=== PATIENT | female | born 1965 | race Caucasian/White ===

== ENCOUNTER 2017-09-13 14:25 | Inpatient (IN) | payer OTHER ==
[~2017-09-13] VITALS: Ht 160 cm; Wt 92.6 kg
[~2017-09-13 14:25] MED LIST: CLON0.5T3 PO; EST1 PO; GDN80 PO; LAMO100T16 PO; OXYB5TAB PO; TOPI100T20 PO; TOPI50TA16 PO
[2017-09-13] MEDS ORDERED: LAMO200T PO (15:24)
[2017-09-13] MEDS ORDERED: ABL/5 PO (15:24)
[2017-09-13] MEDS ORDERED: CHOL20009 PO (15:24)
[2017-09-13] MEDS ORDERED: BUPR-79 PO (15:24)
[2017-09-13 16:00] LABS: URINE APPEARANCE CLOUDY (CLEAR); URINE BILIRUBIN NEG (NEG); URINE COLOR YELLOW; URINE EPITHELIAL CELL AUTO >30 /lpf (0-5); URINE NITRITE NEG (NEG); URINE SPECIFIC GRAVITY 1.029 (1.000-1.030); UROBILINOGEN NEG (NEG); ZZUR CULT IF INDIC CLEAN CATCH NO
--- NOTE | 2017-09-13 16:01 | EMERGENCY ROOM VISIT NOTE ---
History Report prepared by Elmer: Tevin Iqbal Under the Supervision of: Dr. Vitaliy Jameson M.D. First contact with patient: 15:47 Chief Complaint: MENTAL HEALTH EVALUATION Stated Complaint: MENTAL HEALTH,VOICES,HALLUCINATIONS History of Present Illness The patient is a 52 year old female who presents to the Emergency Room for a mental health evaluation. She has a history of bipolar disorder, schizoaffective disorder, and auditory hallucinations. She takes Topamax and Lamictal for her symptoms. She does not take [place]. She was placed on Abilify a couple of weeks ago, but stopped taking it because she was confused as to what her PCP wanted. She has been having worsening auditory hallucinations for about 6 months. She describes them as "pleasant conversations." However, today the voices told her to harm her animals, which they have never done before. She notes that occasionally they will tell her to harm herself. She tried to commit suicide through a pill overdose 6 months ago, but she has not tried to harm herself since then. She denies taking any pills in excess today. Two years ago, she was evaluated in the ER and was transferred to the [facility] for further mental health care and management. The patient is waiting for insurance approval to start Latuda. Source of History: patient Onset: today Position: other (Mental Health) Symptom Intensity: moderate Quality: other (Auditory Hallucinations) Timing: worsening Note: She has a suicidal ideation. She denies any abnormal physical symptoms at this time. Review of Systems See HPI for pertinent positives & negatives. A total of 10 systems reviewed and were otherwise negative. Past Medical & Surgical Medical Problems: (1) Anxiety (2) Bipolar disorder (3) Depression (4) Mood disorder (5) Seizure Family History Omitted secondary to the patient's age. Social History Smoking Status: Never Smoker Smokeless Tobacco Use: No Drug Use: none Marital Status: Housing Status: lives with family Occupation Status: employed Current/Historical Medications Scheduled Aripiprazole (Abilify), 5 MG PO HS Bupropion (Wellbutrin Sr), 150 MG PO BID Cholecalciferol (Vitamin D), 2,000 UNITS PO DAILY Clonazepam (Klonopin), 0.5 MG PO BID Lamotrigine (Lamictal), 100 MG PO BID Lamotrigine (Lamictal), 200 MG PO BID Oxybutynin Chloride (Oxybutynin Chloride Er), 5 MG PO DAILY Topiramate (Topamax), 100 MG PO TID Topiramate (Topamax), 50 MG PO TID Scheduled PRN Clonazepam (Klonopin), 0.5 MG PO DAILY PRN for Anxiety Allergies Coded Allergies: Aspartame (Unverified Allergy, Unknown, seizure like episode, 09/13/17) Diphenhydramine (Unverified Allergy, Unknown, seizure like episode, ) Meperidine (Verified Allergy, Unknown, 09/13/17) Pseudoephedrine (Unverified Allergy, Unknown, seizure like episode, ) Epinephrine (Unverified Adverse Reaction, Unknown, seizure like emotions, 09/13/17) Lidocaine (Unverified Adverse Reaction, Unknown, seizure like emotions., 09/13/17) Physical Exam Vital Signs Date Time Temp Pulse Resp B/P (MAP) Pulse Ox O2 Delivery O2 Flow Rate FiO2 09/13/17 14:32 36.9 88 18 155/91 99 Room Air Physical Exam GENERAL: Patient is in no acute distress. HEENT: No acute trauma, normocephalic atraumatic, mucous membranes moist, no nasal congestion, no scleral icterus. NECK: No stridor, no adenopathy, no meningismus, trachea is midline. LUNGS: Clear to auscultation bilaterally, no wheeze, no rhonchi, breath sounds equal. HEART: Without murmurs gallops or rubs, regular rate and rhythm. ABDOMEN: Soft, nontender, bowel sounds positive, no hernias, no peritonitis. EXTREMITIES: No cyanosis or edema, full range of motion of all the joints without pain or difficulty, no signs for acute trauma. NEUROLOGIC: Oriented x 3, no acute motor or sensory deficits, no focal weakness. SKIN: No rash, no jaundice, no diaphoresis. PSYCHOLOGIC: Cooperative. Voluntary. Admits to hearing voices. Medical Decision & Procedures Laboratory Results 09/13/17 16:07 Red Blood Count 4.47, Mean Corpuscular Volume 91.7, Mean Corpuscular Hemoglobin 30.6, Mean Corpuscular Hemoglobin Concent 33.4, Mean Platelet Volume 8.8, Neutrophils (%) (Auto) 57.9, Lymphocytes (%) (Auto) 31.4, Monocytes (%) (Auto) 7.0, Eosinophils (%) (Auto) 2.9, Basophils (%) (Auto) 0.4, Neutrophils # (Auto) 4.16, Lymphocytes # (Auto) 2.26, Monocytes # (Auto) 0.50, Eosinophils # (Auto) 0.21, Basophils # (Auto) 0.03 09/13/17 16:07 Test 09/13/17 14:50 09/13/17 16:07 Urine Color YELLOW Urine Appearance CLOUDY (CLEAR) Urine pH 7.0 (4.5-7.5) Urine Specific [place] 1.029 (1.000-1.030) Urine Protein NEG (NEG) Urine Glucose (UA) NEG (NEG) Urine Ketones NEG (NEG) Urine Occult Blood NEG (NEG) Urine Nitrite NEG (NEG) Urine Bilirubin NEG (NEG) Urine Urobilinogen NEG (NEG) Urine Leukocyte Esterase SMALL (NEG) Urine WBC (Auto) 5-10 /hpf (0-5) Urine RBC (Auto) 0-4 /hpf (0-4) Urine Hyaline Casts (Auto) 1-5 /lpf (0-5) Urine Epithelial Cells (Auto) >30 /lpf (0-5) Urine Bacteria (Auto) NEG (NEG) Urine Opiates Screen NEG (NEG) Urine Methadone, Qualitative NEG (NEG) Urine Barbiturates NEG (NEG) Urine Phencyclidine (PCP) Level NEG (NEG) Ur Amphetamine/Methamphetamine NEG (NEG) MDMA (Ecstasy) Screen POS (NEG) Urine Benzodiazepines Screen NEG (NEG) Urine Cocaine Metabolite NEG (NEG) Urine Marijuana (THC) NEG (NEG) White Blood Count 7.19 K/uL (4.8-10.8) Red Blood Count 4.47 M/uL (4.2-5.4) Hemoglobin 13.7 g/dL (12.0-16.0) Hematocrit 41.0 % (37-47) Mean Corpuscular Volume 91.7 fL (80-100) Mean Corpuscular Hemoglobin 30.6 pg (25-34) Mean Corpuscular Hemoglobin Concent 33.4 g/dl (32-36) Platelet Count 260 K/uL (130-400) Mean Platelet Volume 8.8 fL (7.4-10.4) Neutrophils (%) (Auto) 57.9 % Lymphocytes (%) (Auto) 31.4 % Monocytes (%) (Auto) 7.0 % Eosinophils (%) (Auto) 2.9 % Basophils (%) (Auto) 0.4 % Neutrophils # (Auto) 4.16 K/uL (1.4-6.5) Lymphocytes # (Auto) 2.26 K/uL (1.2-3.4) Monocytes # (Auto) 0.50 K/uL (0.11-0.59) Eosinophils # (Auto) 0.21 K/uL (0-0.5) Basophils # (Auto) 0.03 K/uL (0-0.2) RDW Standard Deviation 45.9 fL (36.4-46.3) RDW Coefficient of Variation 13.7 % (11.5-14.5) Immature Granulocyte % (Auto) 0.4 % Immature Granulocyte # (Auto) 0.03 K/uL (0.00-0.02) Anion Gap 8.0 mmol/L (3-11) Est Creatinine Clear Calc Drug Dose 75.6 ml/min Estimated GFR () 81.3 Estimated GFR (Non- 70.2 BUN/Creatinine Ratio 17.6 (10-20) Calcium Level 8.4 mg/dl (8.5-10.1) Total Bilirubin 0.1 mg/dl (0.2-1) Aspartate Amino Transf (AST/SGOT) 14 U/L (15-37) Alanine Aminotransferase (ALT/SGPT) 20 U/L (12-78) Alkaline Phosphatase 125 U/L (45-117) Total Protein 7.3 gm/dl (6.4-8.2) Albumin 3.7 gm/dl (3.4-5.0) Globulin 3.6 gm/dl (2.5-4.0) Albumin/Globulin Ratio 1.0 (0.9-2) Thyroid Stimulating Hormone (TSH) 2.790 uIu/ml (0.300-4.500) Salicylates Level < 1.7 mg/dl (2.8-20) Acetaminophen Level < 2 ug/ml (10-30) Ethyl Alcohol mg/dL < 3.0 mg/dl (0-3) Laboratory results reviewed by me. ED Course 1547: The patient was evaluated in room A6. A complete history and physical exam was performed. 1830: The patient was accepted to [address] [place] [address] for further mental health treatment and management as an inpatient. Medical Decision Differential diagnosis includes but is not limited to psychosis, medication noncompliance, thyroid disorder, electrolyte imbalance, and infection. There is no leukocytosis or concerning anemia. No significant electrolyte abnormality, kidney failure or hepatitis. The patient appears to be in a euthyroid state. Urinalysis shows contamination, no obvious infection. Urine tox shows possible ecstasy. Aspirin, Tylenol and alcohol levels were undetectable. The patient presents with auditory hallucinations. The voices tell her to hurt herself and her animals. She was voluntary, she was cooperative. The patient was felt medically clear for a psychiatric evaluation. She was seen by the psychiatry staff, she is being admitted voluntarily to our hospital' s psychiatric floor. She has been cooperative during her stay. Medication Reconcilliation Current Medication List: was personally reviewed by me Blood Pressure Screening Patient's blood pressure: Elevated blood pressure Blood pressure disposition: Elevated BP felt to be situational Impression Primary Impression: Auditory hallucinations Scribe Attestation The scribe's documentation has been prepared under my direction and personally reviewed by me in its entirety. I confirm that the note above accurately reflects all work, treatment, procedures, and medical decision making performed by me. Departure Information Dispostion Mental Health Acute Care Referrals Melquiades Bond M.D. (PCP) Patient Instructions My [facility]
[2017-09-13 16:03] LABS: MANUAL MICROSCOPIC REQUIRED? NO; REVIEW REQ? NO
[2017-09-13 16:21] LABS: BENZODIAZEPINE, URINE NEG (NEG); COCAINE,URINE NEG (NEG); PHENCYCLIDINE, URINE NEG (NEG)
[2017-09-13 16:21] LABS: BASO % 0.4 %; BASO ABS # 0.03 K/uL (0-0.2); COMPLETE YES; EOS % 2.9 %; IG% 0.4 %; LYMPH % 31.4 %; LYMPH ABS # 2.26 K/uL (1.2-3.4); MEAN CELL VOLUME 91.7 fL (80-100); MEAN CORPUSCULAR HEMOGLOBIN 30.6 pg (25-34); MEAN CORPUSCULAR HGB CONC 33.4 g/dl (32-36); MEAN PLATELET VOLUME 8.8 fL (7.4-10.4); NEUT % 57.9 %; PLATELET COUNT 260 K/uL (130-400); RED BLOOD COUNT 4.47 M/uL (4.2-5.4); WHITE BLOOD COUNT 7.19 K/uL (4.8-10.8)
[2017-09-13 16:42] LABS: BUN/CREATININE RATIO 17.6 (10-20); CALCIUM 8.4 mg/dl (8.5-10.1); CREATININE 0.93 mg/dl (0.60-1.20); POTASSIUM 3.9 mmol/L (3.5-5.1)
[2017-09-13 16:50] LABS: ACETAMINOPHEN < 2 ug/ml (10-30)
[2017-09-13 16:52] LABS: THYROID STIMULATING HORMONE 2.79 uIu/ml (0.300-4.500)
[2017-09-13] MEDS ORDERED: BISMUTH SUBSALICYLATE PER ML OMNICELL CHARGE PO PRN (18:30)
[2017-09-13] MEDS ORDERED: CLONAZEPAM 0.5 MG TAB PO PRN (18:30)
[2017-09-13] MEDS ORDERED: ACETAMINOPHEN 325 MG TAB PO PRN (18:30)
[2017-09-13] MEDS ORDERED: ALUMINUM/MAGNESIUM SUSP 30 ML UDC PO PRN (18:30)
[2017-09-13] MEDS ORDERED: SODIUM CHLORIDE 0.65% NA SOLN 45 ML (OCEAN) PRN (18:30)
[2017-09-13] MEDS ORDERED: MAGNESIUM HYDROXIDE SUSP 30 ML UDC PO PRN (18:30)
--- NOTE | 2017-09-13 18:35 | Psych Management Progress Note ---
Psychiatry Miscellaneous Date of Service: Sep 13, 2017. completing admission orders, asking liaison to clarify dosing of Lamictal as 100 mg BID rx newer than 200 mg BID rx in external med history and 600 mg total daily dose may seem quite high. Patient has been non-compliant with Abilify. Held Wellbutrin until assessed in am given dopaminergic effects and active bhandari and seizure history (seems refractory if requiring high dose topamax and lamictal). dosing may need to be confirmed with outpatient providers in am. also, vistaril not ordered given benadryl allergy listed. Will offer prn Klonopin as prescribed for anxiety/sleep.
[2017-09-13 18:47] VITALS: O2SAT 99
[2017-09-13 20:40] VITALS: BP 155/91; PULSE 88; TEMP 36.9; Ht 160 cm; Wt 92.6 kg
[2017-09-13] MEDS ORDERED: ARIPIprazole TAB 5 MG TAB PO SCH (22:00)
[2017-09-13] MEDS: CLONAZEPAM 0.5 MG TAB PO SCH (22:01)
[2017-09-13] MEDS: TOPIRAMATE 50 MG TAB PO SCH (22:02)
[2017-09-13] MEDS: TOPIRAMATE 100 MG TAB PO SCH (22:02)
[2017-09-14 06:59] VITALS: BP_SYST 107; BP_SYST 124; BP_DIAS 70; BP_DIAS 81; PULSE 68; PULSE 71; TEMP 36.6
[2017-09-14] MEDS: OXYBUTYNIN CHLORIDE 5 MG TABCR PO SCH (08:17)
[2017-09-14] MEDS: CLONAZEPAM 0.5 MG TAB PO SCH ×2 (08:18→21:29)
[2017-09-14] MEDS: TOPIRAMATE 50 MG TAB PO SCH ×3 (08:18→21:30)
[2017-09-14] MEDS: TOPIRAMATE 100 MG TAB PO SCH ×3 (08:18→21:29)
[2017-09-14] MEDS: CHOLECALCIFEROL 1000 INTER.UNIT TAB PO SCH (08:19)
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
[2017-09-14] MEDS ORDERED: BuPROPion SR 150 MG TABCR PO ONE (12:45)
[2017-09-14] MEDS: BuPROPion SR 150 MG TABCR PO SCH (17:00)
[2017-09-14] MEDS: LURASIDONE HCL 40 MG TAB PO SCH (17:15)
[2017-09-15 06:47] VITALS: BP_SYST 103; BP_SYST 118; BP_DIAS 66; BP_DIAS 74; PULSE 61; PULSE 73; TEMP 36.4
[2017-09-15] MEDS: TOPIRAMATE 100 MG TAB PO SCH ×3 (08:26→21:27)
[2017-09-15] MEDS: TOPIRAMATE 50 MG TAB PO SCH ×3 (08:26→21:28)
[2017-09-15] MEDS: CHOLECALCIFEROL 1000 INTER.UNIT TAB PO SCH (08:26)
[2017-09-15] MEDS: OXYBUTYNIN CHLORIDE 5 MG TABCR PO SCH (08:26)
[2017-09-15] MEDS: BuPROPion SR 150 MG TABCR PO SCH ×2 (08:27→14:09)
[2017-09-15] MEDS: CLONAZEPAM 0.5 MG TAB PO SCH ×2 (08:27→21:27)
--- NOTE | 2017-09-15 11:56 | Psychiatric Progress Notes ---
Progress Note Date of Service Sep 15, 2017. Interval History Tami Roche is a 52-year-old female from [place] with a known history of bipolar disorder, who presents to the ED with worsening auditory command hallucinations. She is admitted voluntarily. Chief Complaint "Okay, but I'm here". Subjective Patient was seen & assessed interval progress reviewed with Nursing. Staff report she is reporting decreased command hallucinations, and is participating actively in treatment. The patient reports she is going to groups, and talking about her stressors, particularly being alone at home and issues with her . She says she has been "really stressed" about this, and anxiety has been increasing and unbearable. She was very worried to hear that her was going to be discharged from therapy, worrying that he will return to previous behaviors, and that she will have to "help him, keep tabs on him," so started checking the computer and the bank account to look for abnormal activity. She did talk to her and he will discuss it with his therapist , and ask to stay in treatment longer. She continues to hear voices "constantly, " but denies that they are giving her commands currently. She feels the current level of the voices are more manageable. Sleep and appetite are good. Mood is improved, denies SI, feels safe here. She is not sure how we can help her, "how do you learn to trust someone again?" She says their couples' therapist just kept telling her it would take time, but she doesn't feel there is a step santoyo plan for them to follow, and isn't sure how to proceed, and most of her anxiety stems from the situation. She says she has taken over management of their finances/checkbook to ensure her is not spending excessively, and has been checking the computer for his activity, but is not even sure how to log on to some areas. She got her first dose of lurasidone and is tolerating it well. She wants to know if we got the records from her outpatient psychiatric prescriber to determine the correct dose of her lamotrigine. Staff state they sent the release, but we have not yet received any information from them, and will follow up on it. Sleep Information Total Hours of Sleep: 6.00 Meal Information Percent of Breakfast Consumed: 100 Percent of Lunch Consumed: 100 Percent of Dinner Consumed: 100 Mental Status Exam During interview pt is: alert and oriented, cooperative Appearance: appropriately dressed, appropriately groomed Eye contact is: good Motor behavior is: steady gait & station, no abnormal motor movements Speech: normal in rate, rhythm & volume Affect: mood congruent, depressed, tearful Mood is: depressed, anxious, other ("better") Thought process: goal directed Thought content: reality based without delusions Suicidal thought are: denied Homicidal thoughts are: denied Hallucinations: auditory Cognition: attention grossly intact, language grossly intact, other ( frequently answers with "I don't know") Intelligence estimated to be: average Insight: impaired Judgement: impaired Impression 52-year-old woman with previous diagnosis of bipolar disorder, admitted with depression and increase in auditory and visual hallucinations, with command hallucinations to burn her house down, harm her dogs, and kill herself. She now reports a diagnosis of schizoaffective disorder. She had gotten her medications confused as an outpatient, so we will need to confirm her dose of Lamictal as there are 2 different doses in the external med history. Her records were requested from [facility] yesterday, but we have still not received them. On admission, she was not on an antipsychotic, as her outpatient provider had suggested Latuda which seems appropriate given her mood and hallucinations, but they were awaiting authorization from her insurance company. Staff were able to confirm that it was authorized with a $50 co-pay, which the patient agrees to , so was started on 40 mg with dinner on 09/14/2017. Home dose of Topamax continued for her seizures, and we are awaiting records from [facility] to clarify her Lamictal dosage before making any further adjustments. She has been on Wellbutrin for years, and will not increase it due to recent anxiety and her seizure disorder. She has been taking Klonopin 3 times a day. We will continue it as prescribed, 0.5 mg twice a day and 0.5 mg daily prn. We will request records from her neurologist for dosing of medications, and she will need follow-up with him. She is having a family meeting with her today , to discuss a plan to proceed regarding rebuilding trust in the relationship. At this time, the patient requires inpatient mental health treatment due to the severity of her condition and the risk for self-harm if discharged. Plan (1) schizoaffective disorder, bipolar type, depressed, severe, with psychotic features 09/14 - Have nursing preauthorize Jacqueline to see if affordable - If not consider retrial of Gemini - Continue current dose of Wellbutrin 150 twice a day for now - Continue Lamictal 100 mg twice a day until clarification - Every 15 minute checks for safety - Family meeting - Encourage participation in group and individual counseling - Coordinate with outpatient providers and obtain records - Reality orientation 09/15 - Lurasidone authorized by insurance company with $50 co-pay; started on 40 mg at dinner yesterday. Tolerating well, will continue current dose. Check fasting lipid profile and glucose tomorrow for monitoring on an atypical antipsychotic; patient states she has not had this done in years. - Records were requested from [facility] where she sees a psychiatric nurse practitioner. We have not yet received them, and still need to confirm the correct dose of Lamictal, so we'll have staff call and request a be sent immediately, as she would have to be re-titrated if her dose has been increased , as she suspects. - Therapy records received from [facility] and reviewed. Coordinated care with her therapist, Shama Bowman, today. (2) Seizure 09/14 - Continue outpatient dosing of Topamax - Obtain outpatient neurology records - Seizure precautions - Continue Klonopin 0.5 mg twice a day and 0.5 mg daily when necessary 09/15 - Still awaiting records. Patient will need follow-up appointments scheduled with her neurologist, Dr. Hinds. Discharge / Aftercare Planning Primary Care Physician: Name: Dr Bond Psychiatrist: Name: Mireya FAIR, [facility] Therapist: Name: Shama Bowman Appointment Notes: has a weekly appt with her Emergency Medical Service Manager: Name: None Home Health Services: Home Health Services: none Visit Code E&M Code: 93609 Inventory Assets Strengths: Willingness to engage in treatment, love of Needs: Medication adherence Risk Factors Assessment : Yes /single/: No Higher / Fall in social status: No Health problems: Yes Mental Health Diagnoses: Yes Substance use disorders: No Previous attempt: Yes Previous attempt; planned: Yes Previous psychiatric stay: Yes Hopelessness: No Smoker: No Protective Factors Assessment : Yes Responsible for young children: No Employed: Yes Stable relationships: Yes Good rapport with provider: Yes Data Vital Signs Last 24 Hrs: Date Time Temp Pulse Resp B/P (MAP) Pulse Ox O2 Delivery O2 Flow Rate FiO2 09/15/17 06:47 36.4 61 16 103/66 73 118/74 Meds Administered Last 24 Hrs: Meds Administered (Past 24Hrs) Medications (Trade) Dose Ordered Sig/Mo Route Start Time Stop Time Status Last Admin Dose Admin Sodium Chloride ([place]) PRN PRN NA 09/13/17 18:30 10/13/17 18:29 09/14/17 17:51 1 SPRAYS Aripiprazole (Abilify Tab) 5 mg HS PO 09/13/17 22:00 09/14/17 12:06 DC 09/13/17 22:02 5 MG Clonazepam (Klonopin Tab) 0.5 mg BID PO 09/13/17 21:00 10/13/17 20:59 09/15/17 08:27 0.5 MG Lamotrigine (Lamictal Tab) 100 mg BID PO 09/13/17 22:00 10/13/17 21:59 09/15/17 08:26 100 MG Oxybutynin Chloride (Ditropan-Xl Tab) 5 mg DAILY PO 09/14/17 09:00 10/14/17 08:59 09/15/17 08:26 5 MG Topiramate (Topamax Tab) 50 mg TID PO 09/13/17 22:00 10/13/17 21:59 09/15/17 08:26 50 MG Topiramate (Topamax Tab) 100 mg TID PO 09/13/17 22:00 10/13/17 21:59 09/15/17 08:26 100 MG Cholecalciferol (Vitamin D Tab) 2,000 inter.unit DAILY PO 09/14/17 09:00 10/14/17 08:59 09/15/17 08:26 2,000 INTER.UNIT Lurasidone HCl (Latuda Tab) 40 mg DAILY@1730 PO 09/14/17 17:30 10/14/17 17:29 09/14/17 17:15 40 MG Bupropion HCl (Wellbutrin-Sr Tab) 150 mg BID@0900,1700 PO 09/14/17 17:00 10/14/17 16:59 09/15/17 08:27 150 MG Bupropion HCl (Wellbutrin-Sr Tab) 150 mg 1245 ONCE PO 09/14/17 12:45 09/14/17 12:46 DC 09/14/17 12:41 150 MG
[2017-09-15] MEDS: LURASIDONE HCL 40 MG TAB PO SCH (18:06)
[2017-09-16 07:06] VITALS: BP 110/73; PULSE 63; TEMP 36.5
[2017-09-16] MEDS: OXYBUTYNIN CHLORIDE 5 MG TABCR PO SCH (08:16)
[2017-09-16] MEDS: TOPIRAMATE 50 MG TAB PO SCH ×3 (08:17→21:54)
[2017-09-16] MEDS: CHOLECALCIFEROL 1000 INTER.UNIT TAB PO SCH (08:17)
[2017-09-16] MEDS: BuPROPion SR 150 MG TABCR PO SCH ×2 (08:17→13:32)
[2017-09-16] MEDS: TOPIRAMATE 100 MG TAB PO SCH ×3 (08:17→21:54)
[2017-09-16] MEDS: CLONAZEPAM 0.5 MG TAB PO SCH ×2 (08:19→21:54)
[2017-09-16 09:17] LABS: CHOLESTEROL/HDL RATIO 3.6
--- NOTE | 2017-09-16 12:19 | Psychiatric Progress Notes ---
Progress Note Date of Service Sep 16, 2017. Interval History Tami Roche is a 52-year-old female from [place] with a known history of bipolar disorder, who presents to the ED with worsening auditory command hallucinations. She is admitted voluntarily. Chief Complaint "Not good today". Subjective Patient was seen & assessed interval progress reviewed with Treatment Team. Staff report she had a meeting with her yesterday to discuss their stressors. He agreed to keep the computer locked when she isn't at home, so she doesn't have to worry about what he's doing. She says she decided she "needed to spend some time alone today to see how the voices were," and was sitting alone in the group room, when she heard a voice telling her to "get that pen out , you can hurt yourself with that pen." She says she gave the pen to staff. She says she has been crying about it, feels unsafe, "I'm not ready to go home," because she doesn't feel confident she could withstand the voices and fears she might hurt herself. She says she has had "the most horrific hallucinations you can imagine," saying she saw a serpent looking at her in the bathroom once, and is terrified of them. She is scared because when she attempted suicide by overdose, it was in response to the voices telling her to, and she "just did it. " The voices were trying to get her to burn her house down prior to admission, telling her to put candles all over the floor, then get gas and pour it all over to "make a beautiful candle. They're so evil." She says she will go to staff if she is feeling unsafe, and doesn't want to hurt herself, but is fearful of what the voices tell her. Sleep Information Total Hours of Sleep: 7.25 Meal Information Percent of Breakfast Consumed: 100 Percent of Lunch Consumed: 100 Percent of Dinner Consumed: 90 Mental Status Exam During interview pt is: alert and oriented, cooperative Appearance: appropriately dressed, appropriately groomed Eye contact is: good Motor behavior is: steady gait & station, no abnormal motor movements Speech: normal in rate, rhythm & volume Affect: mood congruent, depressed, tearful Mood is: depressed, anxious, other ("better") Thought process: goal directed Thought content: reality based without delusions Suicidal thought are: denied Homicidal thoughts are: denied Hallucinations: auditory Cognition: attention grossly intact, language grossly intact, other ( frequently answers with "I don't know") Intelligence estimated to be: average Insight: impaired Judgement: impaired Impression 52-year-old woman with previous diagnosis of bipolar disorder, admitted with depression and increase in auditory and visual hallucinations, with command hallucinations to burn her house down, harm her dogs, and kill herself. She now reports a diagnosis of schizoaffective disorder. She had gotten her medications confused as an outpatient, so we will need to confirm her dose of Lamictal as there are 2 different doses in the external med history. Her records were requested from [facility] yesterday, but we have still not received them. On admission, she was not on an antipsychotic, as her outpatient provider had suggested Latuda which seems appropriate given her mood and hallucinations, but they were awaiting authorization from her insurance company. Staff were able to confirm that it was authorized with a $50 co-pay, which the patient agrees to , so was started on 40 mg with dinner on 09/14/2017. Home dose of Topamax continued for her seizures, and we are awaiting records from [facility] to clarify her Lamictal dosage before making any further adjustments. She has been on Wellbutrin for years, and will not increase it due to recent anxiety and her seizure disorder. She has been taking Klonopin 3 times a day. We will continue it as prescribed, 0.5 mg twice a day and 0.5 mg daily prn. We will request records from her neurologist for dosing of medications, and she will need follow-up with him. She is having a family meeting with her today , to discuss a plan to proceed regarding rebuilding trust in the relationship. At this time, the patient requires inpatient mental health treatment due to the severity of her condition and the risk for self-harm if discharged. Plan (1) schizoaffective disorder, bipolar type, depressed, severe, with psychotic features 09/14 - Have nursing preauthorize Latuda to see if affordable - If not consider retrial of Geodon - Continue current dose of Wellbutrin 150 twice a day for now - Continue Lamictal 100 mg twice a day until clarification - Every 15 minute checks for safety - Family meeting - Encourage participation in group and individual counseling - Coordinate with outpatient providers and obtain records - Reality orientation 09/15 - Lurasidone authorized by insurance company with $50 co-pay; started on 40 mg at dinner yesterday. Tolerating well, will continue current dose. Check fasting lipid profile and glucose tomorrow for monitoring on an atypical antipsychotic; patient states she has not had this done in years. - Records were requested from [facility] where she sees a psychiatric nurse practitioner. We have not yet received them, and still need to confirm the correct dose of Lamictal, so we'll have staff call and request a be sent immediately, as she would have to be re-titrated if her dose has been increased , as she suspects. - Therapy records received from [facility] and reviewed. Coordinated care with her therapist, Shama Bowman, today. 09/16 - Increase lurasidone to 60mg qdinner. - Reviewed fasting labs with patient - FG normal, FLP showed high cholesterol 243. Will forward to PCP for follow up. - Confirmed OP lamotrigine dose of 300mg bid, will correct. - Again requested records from [facility], they state records are offsite and unavailable, but did send a med list. (2) Seizure 09/14 - Continue outpatient dosing of Topamax - Obtain outpatient neurology records - Seizure precautions - Continue Klonopin 0.5 mg twice a day and 0.5 mg daily when necessary 09/15 - Still awaiting records. Patient will need follow-up appointments scheduled with her neurologist, Dr. Hinds. Discharge / Aftercare Planning Primary Care Physician: Name: Dr Bond Psychiatrist: Name: Mireya FAIR, [facility] Date of Appointment: Sep 21, 2017 Time of Appointment: 11:30am Therapist: Name: Shama Bowman,[facility] Date of Appointment: Sep 29, 2017 Time of Appointment: 11:00am Appointment Notes: has a weekly appt with her Administrative Personal Assistant: Name: None Home Health Services: Home Health Services: none Visit Code E&M Code: 80807 Inventory Assets Strengths: Willingness to engage in treatment, love of Needs: Medication adherence Risk Factors Assessment : Yes /single/: No Higher / Fall in social status: No Health problems: Yes Mental Health Diagnoses: Yes Substance use disorders: No Previous attempt: Yes Previous attempt; planned: Yes Previous psychiatric stay: Yes Hopelessness: No Smoker: No Protective Factors Assessment : Yes Responsible for young children: No Employed: Yes Stable relationships: Yes Good rapport with provider: Yes Data Vital Signs Last 24 Hrs: Date Time Temp Pulse Resp B/P (MAP) Pulse Ox O2 Delivery O2 Flow Rate FiO2 09/16/17 07:06 36.5 63 20 110/73 Meds Administered Last 24 Hrs: Meds Administered (Past 24Hrs) Medications (Trade) Dose Ordered Sig/Mo Route Start Time Stop Time Status Last Admin Dose Admin Lurasidone HCl (Latuda Tab) 40 mg DAILY@1730 PO 09/14/17 17:30 10/14/17 17:29 09/15/17 18:06 40 MG Bupropion HCl (Wellbutrin-Sr Tab) 150 mg BID@0900,1700 PO 09/14/17 17:00 09/15/17 11:39 DC 09/15/17 08:27 150 MG Bupropion HCl (Wellbutrin-Sr Tab) 150 mg 1245 ONCE PO 09/14/17 12:45 09/14/17 12:46 DC 09/14/17 12:41 150 MG Bupropion HCl (Wellbutrin-Sr Tab) 150 mg BID@0900,1400 PO 09/15/17 14:00 10/15/17 13:59 09/16/17 08:17 150 MG Lab Results Last 24 Hrs: Last 24 Hours Test 09/16/17 08:38 Fasting Glucose 81 mg/dl Triglycerides Level 138 mg/dl Cholesterol Level 243 mg/dl HDL Cholesterol 68 mg/dl LDL Cholesterol, Calculated 147 mg/dl VLDL Cholesterol, Calculated 28 mg/dl Cholesterol/HDL Ratio 3.6
[2017-09-16] MEDS ORDERED: LURASIDONE HCL 40 MG TAB PO SCH (17:30)
[2017-09-17 07:00] VITALS: BP_SYST 111; BP_SYST 124; BP_DIAS 73; BP_DIAS 82; PULSE 70; PULSE 84
[2017-09-17] MEDS: OXYBUTYNIN CHLORIDE 5 MG TABCR PO SCH (08:35)
[2017-09-17] MEDS: CLONAZEPAM 0.5 MG TAB PO SCH ×2 (08:36→21:54)
[2017-09-17] MEDS: BuPROPion SR 150 MG TABCR PO SCH ×2 (08:36→13:39)
[2017-09-17] MEDS: TOPIRAMATE 100 MG TAB PO SCH ×3 (08:36→21:55)
[2017-09-17] MEDS: TOPIRAMATE 50 MG TAB PO SCH ×3 (08:36→21:55)
[2017-09-17] MEDS: CHOLECALCIFEROL 1000 INTER.UNIT TAB PO SCH (08:36)
--- NOTE | 2017-09-17 12:15 | Psychiatric Progress Notes ---
Progress Note Date of Service Sep 17, 2017. Interval History Tami Roche is a 52-year-old female from [place] with a known history of bipolar disorder, who presents to the ED with worsening auditory command hallucinations. She is admitted voluntarily. Chief Complaint "I'm upset about coping strategies.". Subjective Patient was seen & assessed interval progress reviewed with Treatment Team. The patient comes to the interview in tears. She has been in a group where they 're talking about coping strategies. She says they talk about using aroma therapy with candles however the voices tell her to light all of her candles to burn down the house. Others talked about walking their dog's as a means of coping, however the voices tell her to hang her dog from a tree. She feels like this points out that she has very little angie in her life that is not being affected by her auditory hallucinations. She also says they were talking about securing certain items like excess pills and guns in the home however her voices told her to hurt herself with a pen yesterday something that one would not think to lock up. She says that the voices even told her that they could hurt her by making her choke on a piece of candy. She feels frustrated by this and feels that the voices are affecting her life in a large way. She talked about visual hallucinations she had at home specifically of both Per and Satan fighting for her soul. She describes that they wrestled her to the ground and were fighting with her. She says Per is always wins. At one point she experienced these while her was home and he simply patted her leg and didn't believe her. She says that they are real, as real as my voice is , and not simply destructive intrusive thoughts. We talked about grounding herself during these moments in ways that she could do that. She talked about her meeting with her saying that they have agreed that they will lock up the computer and only pull it out when they can use it together. They also have a white board at home for him to sign out wherever he is going and they are they are working on their finances together. She denies having any visual hallucinations here. She does not believe medications of yet made any difference. She is quite angry, irritable during the session responding at times with sarcasm. Review of Systems Constitutional: No fever, No chills, No sweats, No weight loss, No weakness, No fatigue, No problem reported ENT: No hearing loss, No unusual epistaxis, No nasal symptoms, No sore throat, No tinnitus, No dental problems, No trouble swallowing, No problem reported Respiratory: No cough, No sputum, No wheezing, No shortness of breath, No dyspnea on exertion, No dyspnea at rest, No hemoptysis, No problem reported Cardiovascular: No chest pain, No orthopnea, No PND, No edema, No claudication , No palpitations, No problem reported Abdomen: No pain, No nausea, No vomiting, No diarrhea, No constipation, No GI bleeding, No problem reported Musculoskeletal: No joint pain, No muscle pain, No swelling, No calf pain, No problem reported Neurologic: No memory loss, No paralysis, No weakness, No numbness/tingling, No vertigo, No balance problems, No problem reported Psychiatric: + depression symptoms, + anxiety (with command hallucinations to hurt herself) Sleep Information Total Hours of Sleep: 6.50 Meal Information Percent of Breakfast Consumed: 95 Percent of Lunch Consumed: 100 Percent of Dinner Consumed: 100 Mental Status Exam During interview pt is: alert and oriented, cooperative Appearance: appropriately dressed, appropriately groomed Eye contact is: good Motor behavior is: steady gait & station, no abnormal motor movements Speech: normal in rate, rhythm & volume Affect: mood congruent, depressed, tearful Mood is: depressed, anxious, other ("better") Thought process: goal directed Thought content: reality based without delusions Suicidal thought are: denied Homicidal thoughts are: denied Hallucinations: auditory Cognition: attention grossly intact, language grossly intact, other ( frequently answers with "I don't know") Intelligence estimated to be: average Insight: impaired Judgement: impaired Impression The patient continues to report auditory hallucinations with much tearfulness and distress. She has a very traumatic style to her when she is upset. Latuda was increased to 60 mg yesterday and today we will increase to 80 mg daily. We will also provide her some written material on mindfulness for her use and hope that she can glean some exercises to use during her periods of distress. She remains on every 15 minute checks for safety and is able to contract for safety in the hospital As she turned the pen in last night when the voices were telling her to hurt herself. Plan (1) schizoaffective disorder, bipolar type, depressed, severe, with psychotic features 09/14 - Have nursing preauthorize Jacqueline to see if affordable - If not consider retrial of Geodon - Continue current dose of Wellbutrin 150 twice a day for now - Continue Lamictal 100 mg twice a day until clarification - Every 15 minute checks for safety - Family meeting - Encourage participation in group and individual counseling - Coordinate with outpatient providers and obtain records - Reality orientation 09/15 - Lurasidone authorized by insurance [employer] with $50 co-pay; started on 40 mg at dinner yesterday. Tolerating well, will continue current dose. Check fasting lipid profile and glucose tomorrow for monitoring on an atypical antipsychotic; patient states she has not had this done in years. - Records were requested from [facility] where she sees a psychiatric nurse practitioner. We have not yet received them, and still need to confirm the correct dose of Lamictal, so we'll have staff call and request a be sent immediately, as she would have to be re-titrated if her dose has been increased , as she suspects. - Therapy records received from [facility] and reviewed. Coordinated care with her therapist, Shama Bowman, today. 09/16 - Increase lurasidone to 60mg qdinner. - Reviewed fasting labs with patient - FG normal, FLP showed high cholesterol 243. Will forward to PCP for follow up. - Confirmed OP lamotrigine dose of 300mg bid, will correct. - Again requested records from [facility], they state records are offsite and unavailable, but did send a med list. 09/17 - Increase trazodone to 80 mg with dinner -Reality orientation - (2) Seizure 09/14 - Continue outpatient dosing of Topamax - Obtain outpatient neurology records - Seizure precautions - Continue Klonopin 0.5 mg twice a day and 0.5 mg daily when necessary 09/15 - Still awaiting records. Patient will need follow-up appointments scheduled with her neurologist, Dr. Hinds. Discharge / Aftercare Planning Primary Care Physician: Name: Dr Bond Psychiatrist: Name: Mireya FAIR, [facility] Date of Appointment: Sep 21, 2017 Time of Appointment: 11:30am Therapist: Name: Shama [facility] Date of Appointment: Sep 29, 2017 Time of Appointment: 11:00am Appointment Notes: has a weekly appt with her Resource Efficiency Manager: Name: None Home Health Services: Home Health Services: none Visit Code E&M Code: 70475 Inventory Assets Strengths: Willingness to engage in treatment, love of Needs: Medication adherence Risk Factors Assessment : Yes /single/: No Higher / Fall in social status: No Health problems: Yes Mental Health Diagnoses: Yes Substance use disorders: No Previous attempt: Yes Previous attempt; planned: Yes Previous psychiatric stay: Yes Hopelessness: No Smoker: No Protective Factors Assessment : Yes Responsible for young children: No Employed: Yes Stable relationships: Yes Good rapport with provider: Yes Data Vital Signs Last 24 Hrs: Date Time Temp Pulse Resp B/P (MAP) Pulse Ox O2 Delivery O2 Flow Rate FiO2 09/17/17 07:00 84 16 111/73 70 124/82 Meds Administered Last 24 Hrs: Meds Administered (Past 24Hrs) Medications (Trade) Dose Ordered Sig/Mo Route Start Time Stop Time Status Last Admin Dose Admin Bupropion HCl (Wellbutrin-Sr Tab) 150 mg BID@0900,1400 PO 09/15/17 14:00 10/15/17 13:59 09/17/17 08:36 150 MG Lamotrigine (Lamictal Tab) 300 mg BID PO 09/16/17 22:00 10/16/17 21:59 09/17/17 08:36 300 MG Lurasidone HCl (Latuda Tab) 60 mg DAILY@1730 PO 09/16/17 17:30 10/14/17 17:29 09/16/17 17:21 60 MG Lab Results Last 24 Hrs: 09/13/17 16:07 Red Blood Count 4.47, Mean Corpuscular Volume 91.7, Mean Corpuscular Hemoglobin 30.6, Mean Corpuscular Hemoglobin Concent 33.4, Mean Platelet Volume 8.8, Neutrophils (%) (Auto) 57.9, Lymphocytes (%) (Auto) 31.4, Monocytes (%) (Auto) 7.0, Eosinophils (%) (Auto) 2.9, Basophils (%) (Auto) 0.4, Neutrophils # (Auto) 4.16, Lymphocytes # (Auto) 2.26, Monocytes # (Auto) 0.50, Eosinophils # (Auto) 0.21, Basophils # (Auto) 0.03 09/13/17 16:07 Test 09/13/17 14:50 09/13/17 16:07 09/16/17 08:38 Urine Color YELLOW Urine Appearance CLOUDY (CLEAR) Urine pH 7.0 (4.5-7.5) Urine Specific [place] 1.029 (1.000-1.030) Urine Protein NEG (NEG) Urine Glucose (UA) NEG (NEG) Urine Ketones NEG (NEG) Urine Occult Blood NEG (NEG) Urine Nitrite NEG (NEG) Urine Bilirubin NEG (NEG) Urine Urobilinogen NEG (NEG) Urine Leukocyte Esterase SMALL (NEG) Urine WBC (Auto) 5-10 /hpf (0-5) Urine RBC (Auto) 0-4 /hpf (0-4) Urine Hyaline Casts (Auto) 1-5 /lpf (0-5) Urine Epithelial Cells (Auto) >30 /lpf (0-5) Urine Bacteria (Auto) NEG (NEG) Urine Opiates Screen NEG (NEG) Urine Methadone, Qualitative NEG (NEG) Urine Barbiturates NEG (NEG) Urine Phencyclidine (PCP) Level NEG (NEG) Ur Amphetamine/Methamphetamine NEG (NEG) Urine MDE-amphetamine (MDEA) negative Ur Methylenedioxyamphetamine (MDA) negative MDMA (Ecstasy) Screen POS (NEG) Methylenedioxymethamphetamine (MDMA negative Urine Benzodiazepines Screen NEG (NEG) Urine Cocaine Metabolite NEG (NEG) Urine Marijuana (THC) NEG (NEG) White Blood Count 7.19 K/uL (4.8-10.8) Red Blood Count 4.47 M/uL (4.2-5.4) Hemoglobin 13.7 g/dL (12.0-16.0) Hematocrit 41.0 % (37-47) Mean Corpuscular Volume 91.7 fL (80-100) Mean Corpuscular Hemoglobin 30.6 pg (25-34) Mean Corpuscular Hemoglobin Concent 33.4 g/dl (32-36) Platelet Count 260 K/uL (130-400) Mean Platelet Volume 8.8 fL (7.4-10.4) Neutrophils (%) (Auto) 57.9 % Lymphocytes (%) (Auto) 31.4 % Monocytes (%) (Auto) 7.0 % Eosinophils (%) (Auto) 2.9 % Basophils (%) (Auto) 0.4 % Neutrophils # (Auto) 4.16 K/uL (1.4-6.5) Lymphocytes # (Auto) 2.26 K/uL (1.2-3.4) Monocytes # (Auto) 0.50 K/uL (0.11-0.59) Eosinophils # (Auto) 0.21 K/uL (0-0.5) Basophils # (Auto) 0.03 K/uL (0-0.2) RDW Standard Deviation 45.9 fL (36.4-46.3) RDW Coefficient of Variation 13.7 % (11.5-14.5) Immature Granulocyte % (Auto) 0.4 % Immature Granulocyte # (Auto) 0.03 K/uL (0.00-0.02) Anion Gap 8.0 mmol/L (3-11) Est Creatinine Clear Calc Drug Dose 75.6 ml/min Estimated GFR () 81.3 Estimated GFR (Non- 70.2 BUN/Creatinine Ratio 17.6 (10-20) Calcium Level 8.4 mg/dl (8.5-10.1) Total Bilirubin 0.1 mg/dl (0.2-1) Aspartate Amino Transf (AST/SGOT) 14 U/L (15-37) Alanine Aminotransferase (ALT/SGPT) 20 U/L (12-78) Alkaline Phosphatase 125 U/L (45-117) Total Protein 7.3 gm/dl (6.4-8.2) Albumin 3.7 gm/dl (3.4-5.0) Globulin 3.6 gm/dl (2.5-4.0) Albumin/Globulin Ratio 1.0 (0.9-2) Thyroid Stimulating Hormone (TSH) 2.790 uIu/ml (0.300-4.500) Salicylates Level < 1.7 mg/dl (2.8-20) Acetaminophen Level < 2 ug/ml (10-30) Ethyl Alcohol mg/dL < 3.0 mg/dl (0-3) Fasting Glucose 81 mg/dl (70-99) Triglycerides Level 138 mg/dl (0-150) Cholesterol Level 243 mg/dl (0-200) HDL Cholesterol 68 mg/dl LDL Cholesterol, Calculated 147 mg/dl VLDL Cholesterol, Calculated 28 mg/dl Cholesterol/HDL Ratio 3.6
[2017-09-17] MEDS: LURASIDONE HCL 40 MG TAB PO SCH (17:33)
[2017-09-18 07:03] VITALS: BP_SYST 118; BP_SYST 129; BP_DIAS 70; BP_DIAS 78; PULSE 68; PULSE 71; TEMP 36.7
[2017-09-18] MEDS: CLONAZEPAM 0.5 MG TAB PO SCH ×2 (08:11→21:10)
[2017-09-18] MEDS: OXYBUTYNIN CHLORIDE 5 MG TABCR PO SCH (08:11)
[2017-09-18] MEDS: BuPROPion SR 150 MG TABCR PO SCH ×2 (08:12→13:40)
[2017-09-18] MEDS: CHOLECALCIFEROL 1000 INTER.UNIT TAB PO SCH (08:12)
[2017-09-18] MEDS: TOPIRAMATE 50 MG TAB PO SCH ×3 (08:12→21:10)
[2017-09-18] MEDS: TOPIRAMATE 100 MG TAB PO SCH ×3 (08:12→21:10)
--- NOTE | 2017-09-18 10:41 | Psychiatric Progress Notes ---
Progress Note Date of Service Sep 18, 2017. Interval History Tami Roche is a 52-year-old female from [place] with a known history of bipolar disorder, who presents to the ED with worsening auditory command hallucinations. She is admitted voluntarily. Chief Complaint "I cried all day yesterday. ". Subjective Patient was seen & assessed interval progress reviewed with Treatment Team. The patient is upset that her lamictal dose was reduced on admission. She thinks that this is why she was so tearful yesterday. Her dose was increased to 300 mg. BID on 09/16. She says that she continued to hear voices yesterday , but today they are less frequent and back to "chit chat" and not commanding her in any way. She has been using ear plugs at night and finds that they dampen the voices and so is using them during the day when she isn't in a group. She denies SI, and denies vis hallucinations today. Staff report that she was irritable yesterday in groups, and labile in mood. She thinks that if her progress continues that she may be able to go home in a few days. Review of Systems Constitutional: No fever, No chills, No sweats, No weight loss, No weakness, No fatigue, No problem reported ENT: No hearing loss, No unusual epistaxis, No nasal symptoms, No sore throat, No tinnitus, No dental problems, No trouble swallowing, No problem reported Respiratory: No cough, No sputum, No wheezing, No shortness of breath, No dyspnea on exertion, No dyspnea at rest, No hemoptysis, No problem reported Cardiovascular: No chest pain, No orthopnea, No PND, No edema, No claudication , No palpitations, No problem reported Abdomen: No pain, No nausea, No vomiting, No diarrhea, No constipation, No GI bleeding, No problem reported Musculoskeletal: No joint pain, No muscle pain, No swelling, No calf pain, No problem reported Neurologic: No memory loss, No paralysis, No weakness, No numbness/tingling, No vertigo, No balance problems, No problem reported Psychiatric: + problem reported (aud hallucinations) Integumentary: No rash, No itch, No new/changing skin lesions, No color change , No bleeding, No problem reported Sleep Information Total Hours of Sleep: 6.75 Meal Information Percent of Breakfast Consumed: 100 Percent of Lunch Consumed: 100 Percent of Dinner Consumed: 100 Mental Status Exam During interview pt is: alert and oriented, cooperative Appearance: appropriately dressed, appropriately groomed Eye contact is: good Motor behavior is: steady gait & station, no abnormal motor movements Speech: normal in rate, rhythm & volume (sarcastic tone) Affect: mood congruent, depressed, tearful Mood is: irritable Thought process: goal directed Thought content: reality based without delusions Suicidal thought are: denied Homicidal thoughts are: denied Hallucinations: auditory, denies visual Cognition: attention grossly intact, language grossly intact, other ( frequently answers with "I don't know") Intelligence estimated to be: average Insight: impaired Judgement: impaired Impression The patient had a very difficult day yesterday. Cried most of the day, hallucinating although never appears to be responding to internal stimuli. Mood better today and reports of hallucinations reduced. Will continue Latuda 80 mg. daily for now. If she can sustain her progress over the next few day, could consider discharge early next week. Plan (1) schizoaffective disorder, bipolar type, depressed, severe, with psychotic features 09/14 - Have nursing preauthorize Latuda to see if affordable - If not consider retrial of Geodon - Continue current dose of Wellbutrin 150 twice a day for now - Continue Lamictal 100 mg twice a day until clarification - Every 15 minute checks for safety - Family meeting - Encourage participation in group and individual counseling - Coordinate with outpatient providers and obtain records - Reality orientation 09/15 - Lurasidone authorized by insurance company with $50 co-pay; started on 40 mg at dinner yesterday. Tolerating well, will continue current dose. Check fasting lipid profile and glucose tomorrow for monitoring on an atypical antipsychotic; patient states she has not had this done in years. - Records were requested from [facility] where she sees a psychiatric nurse practitioner. We have not yet received them, and still need to confirm the correct dose of Lamictal, so we'll have staff call and request a be sent immediately, as she would have to be re-titrated if her dose has been increased , as she suspects. - Therapy records received from [facility] and reviewed. Coordinated care with her therapist, Shama Bowman, today. 09/16 - Increase lurasidone to 60mg qdinner. - Reviewed fasting labs with patient - FG normal, FLP showed high cholesterol 243. Will forward to PCP for follow up. - Confirmed OP lamotrigine dose of 300mg bid, will correct. - Again requested records from [facility], they state records are offsite and unavailable, but did send a med list. 09/17 - Increase trazodone to 80 mg with dinner -Reality orientation 09/18 - Continue Latuda 80 mg. daily (2) Seizure 09/14 - Continue outpatient dosing of Topamax - Obtain outpatient neurology records - Seizure precautions - Continue Klonopin 0.5 mg twice a day and 0.5 mg daily when necessary 09/15 - Still awaiting records. Patient will need follow-up appointments scheduled with her neurologist, Dr. Hinds. Discharge / Aftercare Planning Primary Care Physician: Name: Dr Bond Psychiatrist: Name: Mireya FAIR, [facility] Date of Appointment: Sep 21, 2017 Time of Appointment: 11:30am Therapist: Name: Shama Bowman,[email or web address] Date of Appointment: Sep 29, 2017 Time of Appointment: 11:00am Appointment Notes: has a weekly appt with her Heavy Duty Diesel Mechanic: Name: None Home Health Services: Home Health Services: none Visit Code E&M Code: 77588 Inventory Assets Strengths: Willingness to engage in treatment, love of Needs: Medication adherence Risk Factors Assessment : Yes /single/: No Higher / Fall in social status: No Health problems: Yes Mental Health Diagnoses: Yes Substance use disorders: No Previous attempt: Yes Previous attempt; planned: Yes Previous psychiatric stay: Yes Hopelessness: No Smoker: No Protective Factors Assessment : Yes Responsible for young children: No Employed: Yes Stable relationships: Yes Good rapport with provider: Yes Data Vital Signs Last 24 Hrs: Date Time Temp Pulse Resp B/P (MAP) Pulse Ox O2 Delivery O2 Flow Rate FiO2 09/18/17 07:03 36.7 68 16 118/70 71 129/78 Meds Administered Last 24 Hrs: Meds Administered (Past 24Hrs) Medications (Trade) Dose Ordered Sig/Mo Route Start Time Stop Time Status Last Admin Dose Admin Lamotrigine (Lamictal Tab) 300 mg BID PO 09/16/17 22:00 10/16/17 21:59 09/18/17 08:12 300 MG Lurasidone HCl (Latuda Tab) 60 mg DAILY@1730 PO 09/16/17 17:30 09/17/17 12:16 DC 09/16/17 17:21 60 MG Lurasidone HCl (Latuda Tab) 80 mg DAILY@1730 PO 09/17/17 17:30 10/17/17 17:29 09/17/17 17:33 80 MG Lab Results Last 24 Hrs: 09/13/17 16:07 Red Blood Count 4.47, Mean Corpuscular Volume 91.7, Mean Corpuscular Hemoglobin 30.6, Mean Corpuscular Hemoglobin Concent 33.4, Mean Platelet Volume 8.8, Neutrophils (%) (Auto) 57.9, Lymphocytes (%) (Auto) 31.4, Monocytes (%) (Auto) 7.0, Eosinophils (%) (Auto) 2.9, Basophils (%) (Auto) 0.4, Neutrophils # (Auto) 4.16, Lymphocytes # (Auto) 2.26, Monocytes # (Auto) 0.50, Eosinophils # (Auto) 0.21, Basophils # (Auto) 0.03 09/13/17 16:07 Test 09/13/17 14:50 09/13/17 16:07 09/16/17 08:38 Urine Color YELLOW Urine Appearance CLOUDY (CLEAR) Urine pH 7.0 (4.5-7.5) Urine Specific [place] 1.029 (1.000-1.030) Urine Protein NEG (NEG) Urine Glucose (UA) NEG (NEG) Urine Ketones NEG (NEG) Urine Occult Blood NEG (NEG) Urine Nitrite NEG (NEG) Urine Bilirubin NEG (NEG) Urine Urobilinogen NEG (NEG) Urine Leukocyte Esterase SMALL (NEG) Urine WBC (Auto) 5-10 /hpf (0-5) Urine RBC (Auto) 0-4 /hpf (0-4) Urine Hyaline Casts (Auto) 1-5 /lpf (0-5) Urine Epithelial Cells (Auto) >30 /lpf (0-5) Urine Bacteria (Auto) NEG (NEG) Urine Opiates Screen NEG (NEG) Urine Methadone, Qualitative NEG (NEG) Urine Barbiturates NEG (NEG) Urine Phencyclidine (PCP) Level NEG (NEG) Ur Amphetamine/Methamphetamine NEG (NEG) Urine MDE-amphetamine (MDEA) negative Ur Methylenedioxyamphetamine (MDA) negative MDMA (Ecstasy) Screen POS (NEG) Methylenedioxymethamphetamine (MDMA negative Urine Benzodiazepines Screen NEG (NEG) Urine Cocaine Metabolite NEG (NEG) Urine Marijuana (THC) NEG (NEG) White Blood Count 7.19 K/uL (4.8-10.8) Red Blood Count 4.47 M/uL (4.2-5.4) Hemoglobin 13.7 g/dL (12.0-16.0) Hematocrit 41.0 % (37-47) Mean Corpuscular Volume 91.7 fL (80-100) Mean Corpuscular Hemoglobin 30.6 pg (25-34) Mean Corpuscular Hemoglobin Concent 33.4 g/dl (32-36) Platelet Count 260 K/uL (130-400) Mean Platelet Volume 8.8 fL (7.4-10.4) Neutrophils (%) (Auto) 57.9 % Lymphocytes (%) (Auto) 31.4 % Monocytes (%) (Auto) 7.0 % Eosinophils (%) (Auto) 2.9 % Basophils (%) (Auto) 0.4 % Neutrophils # (Auto) 4.16 K/uL (1.4-6.5) Lymphocytes # (Auto) 2.26 K/uL (1.2-3.4) Monocytes # (Auto) 0.50 K/uL (0.11-0.59) Eosinophils # (Auto) 0.21 K/uL (0-0.5) Basophils # (Auto) 0.03 K/uL (0-0.2) RDW Standard Deviation 45.9 fL (36.4-46.3) RDW Coefficient of Variation 13.7 % (11.5-14.5) Immature Granulocyte % (Auto) 0.4 % Immature Granulocyte # (Auto) 0.03 K/uL (0.00-0.02) Anion Gap 8.0 mmol/L (3-11) Est Creatinine Clear Calc Drug Dose 75.6 ml/min Estimated GFR () 81.3 Estimated GFR (Non- 70.2 BUN/Creatinine Ratio 17.6 (10-20) Calcium Level 8.4 mg/dl (8.5-10.1) Total Bilirubin 0.1 mg/dl (0.2-1) Aspartate Amino Transf (AST/SGOT) 14 U/L (15-37) Alanine Aminotransferase (ALT/SGPT) 20 U/L (12-78) Alkaline Phosphatase 125 U/L (45-117) Total Protein 7.3 gm/dl (6.4-8.2) Albumin 3.7 gm/dl (3.4-5.0) Globulin 3.6 gm/dl (2.5-4.0) Albumin/Globulin Ratio 1.0 (0.9-2) Thyroid Stimulating Hormone (TSH) 2.790 uIu/ml (0.300-4.500) Salicylates Level < 1.7 mg/dl (2.8-20) Acetaminophen Level < 2 ug/ml (10-30) Ethyl Alcohol mg/dL < 3.0 mg/dl (0-3) Fasting Glucose 81 mg/dl (70-99) Triglycerides Level 138 mg/dl (0-150) Cholesterol Level 243 mg/dl (0-200) HDL Cholesterol 68 mg/dl LDL Cholesterol, Calculated 147 mg/dl VLDL Cholesterol, Calculated 28 mg/dl Cholesterol/HDL Ratio 3.6
[2017-09-18] MEDS: LURASIDONE HCL 40 MG TAB PO SCH (17:33)
[2017-09-19 07:05] VITALS: BP_SYST 112; BP_SYST 116; BP_DIAS 70; BP_DIAS 78; PULSE 69; PULSE 71; TEMP 36.5
[2017-09-19] MEDS: CLONAZEPAM 0.5 MG TAB PO SCH ×2 (08:45→22:04)
[2017-09-19] MEDS: TOPIRAMATE 50 MG TAB PO SCH ×3 (08:45→22:04)
[2017-09-19] MEDS: TOPIRAMATE 100 MG TAB PO SCH ×3 (08:45→22:03)
[2017-09-19] MEDS: CHOLECALCIFEROL 1000 INTER.UNIT TAB PO SCH (08:45)
[2017-09-19] MEDS: OXYBUTYNIN CHLORIDE 5 MG TABCR PO SCH (08:45)
[2017-09-19] MEDS: BuPROPion SR 150 MG TABCR PO SCH ×2 (08:45→13:40)
--- NOTE | 2017-09-19 14:45 | Psychiatric Progress Notes ---
Progress Note Date of Service Sep 19, 2017. Interval History Tami Roche is a 52-year-old female from [place] with a known history of bipolar disorder, who presents to the ED with worsening auditory command hallucinations. She is admitted voluntarily. Chief Complaint "Voices are getting better". Subjective Patient was seen & assessed interval progress reviewed with Nursing. Patient reports that she is tolerating medications well. Mood has been stabilizing. Auditory hallucinations have improved significantly since she started Abilify. Denies any thoughts to harm herself or others. Review of Systems Psych: denies symptoms other than stated above Constitutional: denied Cardiovascular: denied GI: denied Neurologic: denied Remainder of 10 body systems also reviewed and denied other than noted above. Sleep Information Total Hours of Sleep: 8.25 Meal Information Percent of Breakfast Consumed: 100 Percent of Lunch Consumed: 90 Percent of Dinner Consumed: 100 Mental Status Exam During interview pt is: alert and oriented, cooperative Appearance: appropriately dressed, appropriately groomed Eye contact is: good Motor behavior is: steady gait & station, no abnormal motor movements Speech: normal in rate, rhythm & volume (sarcastic tone) Affect: mood congruent, depressed, tearful Mood is: irritable Thought process: goal directed Thought content: reality based without delusions Suicidal thought are: denied Homicidal thoughts are: denied Hallucinations: auditory, denies visual Cognition: attention grossly intact, language grossly intact, other ( frequently answers with "I don't know") Intelligence estimated to be: average Insight: impaired Judgement: impaired Impression The patient had a very difficult day yesterday. Cried most of the day, hallucinating although never appears to be responding to internal stimuli. Mood better today and reports of hallucinations reduced. Will continue Latuda 80 mg. daily for now. If she can sustain her progress over the next few day, could consider discharge early next week. Plan (1) schizoaffective disorder, bipolar type, depressed, severe, with psychotic features 09/14 - Have nursing preauthorize Latuda to see if affordable - If not consider retrial of Geodon - Continue current dose of Wellbutrin 150 twice a day for now - Continue Lamictal 100 mg twice a day until clarification - Every 15 minute checks for safety - Family meeting - Encourage participation in group and individual counseling - Coordinate with outpatient providers and obtain records - Reality orientation 09/15 - Lurasidone authorized by insurance [email or web address] with $50 co-pay; started on 40 mg at dinner yesterday. Tolerating well, will continue current dose. Check fasting lipid profile and glucose tomorrow for monitoring on an atypical antipsychotic; patient states she has not had this done in years. - Records were requested from [facility] where she sees a psychiatric nurse practitioner. We have not yet received them, and still need to confirm the correct dose of Lamictal, so we'll have staff call and request a be sent immediately, as she would have to be re-titrated if her dose has been increased , as she suspects. - Therapy records received from [facility] and reviewed. Coordinated care with her therapist, Shama Bowman, today. 09/16 - Increase lurasidone to 60mg qdinner. - Reviewed fasting labs with patient - FG normal, FLP showed high cholesterol 243. Will forward to PCP for follow up. - Confirmed OP lamotrigine dose of 300mg bid, will correct. - Again requested records from [facility], they state records are offsite and unavailable, but did send a med list. 09/17 - Increase trazodone to 80 mg with dinner -Reality orientation 09/18 - Continue Latuda 80 mg. daily (2) Seizure 09/14 - Continue outpatient dosing of Topamax - Obtain outpatient neurology records - Seizure precautions - Continue Klonopin 0.5 mg twice a day and 0.5 mg daily when necessary 09/15 - Still awaiting records. Patient will need follow-up appointments scheduled with her neurologist, Dr. Hinds. Discharge / Aftercare Planning Primary Care Physician: Name: Dr Bond Psychiatrist: Name: Mireya FAIR, [facility] Date of Appointment: Sep 21, 2017 Time of Appointment: 11:30am Therapist: Name: Shama Bowman,[facility] Date of Appointment: Sep 29, 2017 Time of Appointment: 11:00am Appointment Notes: has a weekly appt with her [employer] Supervisor: Name: None Home Health Services: Home Health Services: none Visit Code E&M Code: 46458 Inventory Assets Strengths: Willingness to engage in treatment, love of Needs: Medication adherence Risk Factors Assessment : Yes /single/: No Higher / Fall in social status: No Health problems: Yes Mental Health Diagnoses: Yes Substance use disorders: No Previous attempt: Yes Previous attempt; planned: Yes Previous psychiatric stay: Yes Hopelessness: No Smoker: No Protective Factors Assessment : Yes Responsible for young children: No Employed: Yes Stable relationships: Yes Good rapport with provider: Yes Data Vital Signs Last 24 Hrs: Date Time Temp Pulse Resp B/P (MAP) Pulse Ox O2 Delivery O2 Flow Rate FiO2 09/19/17 07:05 36.5 71 16 112/70 69 116/78 Meds Administered Last 24 Hrs: Meds Administered (Past 24Hrs) Medications (Trade) Dose Ordered Sig/Mo Route Start Time Stop Time Status Last Admin Dose Admin Lurasidone HCl (Latuda Tab) 80 mg DAILY@1730 PO 09/17/17 17:30 10/17/17 17:29 09/18/17 17:33 80 MG
[2017-09-19] MEDS: LURASIDONE HCL 40 MG TAB PO SCH (17:49)
[2017-09-20 06:52] VITALS: BP_SYST 111; BP_SYST 128; BP_DIAS 73; BP_DIAS 82; PULSE 63; PULSE 67; TEMP 36.5
[2017-09-20] MEDS: OXYBUTYNIN CHLORIDE 5 MG TABCR PO SCH (08:01)
[2017-09-20] MEDS: CLONAZEPAM 0.5 MG TAB PO SCH ×2 (08:02→21:13)
[2017-09-20] MEDS: TOPIRAMATE 100 MG TAB PO SCH ×3 (08:02→21:14)
[2017-09-20] MEDS: TOPIRAMATE 50 MG TAB PO SCH ×3 (08:02→21:13)
[2017-09-20] MEDS: BuPROPion SR 150 MG TABCR PO SCH ×2 (08:03→13:33)
[2017-09-20] MEDS: CHOLECALCIFEROL 1000 INTER.UNIT TAB PO SCH (08:03)
--- NOTE | 2017-09-20 13:02 | Psychiatric Progress Notes ---
Progress Note Date of Service Sep 20, 2017. Interval History Tami Roche is a 52-year-old female from [place] with a known history of bipolar disorder, who presents to the ED with worsening auditory command hallucinations. She is admitted voluntarily. Chief Complaint "I can sing again". Subjective Patient was seen & assessed interval progress reviewed with Nursing. Patient reports that auditory hallucinations are no longer present. She is trained as a music (voice) instructor and for years has not been able to hear songs in her head but with improvement in auditory hallucinations she is now able to and this has allowed her to sing out loud which she has found very uplifting. Tolerating medications well without any significant side effects. had visited her and commented to her that she seemed significantly improved. Denies any thoughts to harm herself or others. Denies any auditory or visual hallucinations. Sleep Information Total Hours of Sleep: 6.75 Meal Information Percent of Breakfast Consumed: 90 Percent of Lunch Consumed: 90 Percent of Dinner Consumed: 95 Mental Status Exam During interview pt is: alert and oriented, cooperative Appearance: appropriately dressed, appropriately groomed Eye contact is: good Motor behavior is: steady gait & station, no abnormal motor movements Speech: normal in rate, rhythm & volume (sarcastic tone) Affect: mood congruent, depressed, tearful Mood is: irritable Thought process: goal directed Thought content: reality based without delusions Suicidal thought are: denied Homicidal thoughts are: denied Hallucinations: auditory, denies visual Cognition: attention grossly intact, language grossly intact, other ( frequently answers with "I don't know") Intelligence estimated to be: average Insight: impaired Judgement: impaired Impression The patient had a very difficult day yesterday. Cried most of the day, hallucinating although never appears to be responding to internal stimuli. Mood better today and reports of hallucinations reduced. Will continue Latuda 80 mg. daily for now. If she can sustain her progress over the next few day, could consider discharge early next week. Plan (1) schizoaffective disorder, bipolar type, depressed, severe, with psychotic features 09/14 - Have nursing preauthorize Latuda to see if affordable - If not consider retrial of Geodon - Continue current dose of Wellbutrin 150 twice a day for now - Continue Lamictal 100 mg twice a day until clarification - Every 15 minute checks for safety - Family meeting - Encourage participation in group and individual counseling - Coordinate with outpatient providers and obtain records - Reality orientation 09/15 - Lurasidone authorized by insurance company with $50 co-pay; started on 40 mg at dinner yesterday. Tolerating well, will continue current dose. Check fasting lipid profile and glucose tomorrow for monitoring on an atypical antipsychotic; patient states she has not had this done in years. - Records were requested from [facility] where she sees a psychiatric nurse practitioner. We have not yet received them, and still need to confirm the correct dose of Lamictal, so we'll have staff call and request a be sent immediately, as she would have to be re-titrated if her dose has been increased , as she suspects. - Therapy records received from [facility] and reviewed. Coordinated care with her therapist, Shama Bowman, today. 09/16 - Increase lurasidone to 60mg qdinner. - Reviewed fasting labs with patient - FG normal, FLP showed high cholesterol 243. Will forward to PCP for follow up. - Confirmed OP lamotrigine dose of 300mg bid, will correct. - Again requested records from [facility], they state records are offsite and unavailable, but did send a med list. 09/17 - Increase trazodone to 80 mg with dinner -Reality orientation 09/18 - Continue Latuda 80 mg. daily 09/20 - Continue Latuda 80mg every dinner and Lamotrigine 300mg twice daily. (2) Seizure 09/14 - Continue outpatient dosing of Topamax - Obtain outpatient neurology records - Seizure precautions - Continue Klonopin 0.5 mg twice a day and 0.5 mg daily when necessary 09/15 - Still awaiting records. Patient will need follow-up appointments scheduled with her neurologist, Dr. Hinds. Discharge / Aftercare Planning Primary Care Physician: Name: Dr Bond Psychiatrist: Name: Mireya FAIR, [facility] Date of Appointment: Sep 21, 2017 Time of Appointment: 11:30am Therapist: Name: Shama Bowman,[employer] Date of Appointment: Sep 29, 2017 Time of Appointment: 11:00am Appointment Notes: has a weekly appt with her [employer]: Name: None Home Health Services: Home Health Services: none Visit Code E&M Code: 13931 Inventory Assets Strengths: Willingness to engage in treatment, love of Needs: Medication adherence Risk Factors Assessment : Yes /single/: No Higher / Fall in social status: No Health problems: Yes Mental Health Diagnoses: Yes Substance use disorders: No Previous attempt: Yes Previous attempt; planned: Yes Previous psychiatric stay: Yes Hopelessness: No Smoker: No Protective Factors Assessment : Yes Responsible for young children: No Employed: Yes Stable relationships: Yes Good rapport with provider: Yes Data Vital Signs Last 24 Hrs: Date Time Temp Pulse Resp B/P (MAP) Pulse Ox O2 Delivery O2 Flow Rate FiO2 09/20/17 06:52 36.5 63 16 111/73 67 128/82
[2017-09-20] MEDS: LURASIDONE HCL 40 MG TAB PO SCH (17:46)
[2017-09-21 06:55] VITALS: BP_SYST 108; BP_SYST 126; BP_DIAS 70; BP_DIAS 82; PULSE 80; PULSE 81; TEMP 36.7
[2017-09-21] MEDS: OXYBUTYNIN CHLORIDE 5 MG TABCR PO SCH (08:28)
[2017-09-21] MEDS: TOPIRAMATE 100 MG TAB PO SCH (08:29)
[2017-09-21] MEDS: TOPIRAMATE 50 MG TAB PO SCH (08:29)
[2017-09-21] MEDS: CHOLECALCIFEROL 1000 INTER.UNIT TAB PO SCH (08:30)
[2017-09-21] MEDS: BuPROPion SR 150 MG TABCR PO SCH (08:30)
[2017-09-21] MEDS: CLONAZEPAM 0.5 MG TAB PO SCH (08:32)
[2017-09-21] MEDS ORDERED: LURA80TA PO (09:15)
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
[2017-09-21] MEDS ORDERED: DESTROY THIS MEDICATION ONE (10:30)
== END 2017-09-21 10:05 | disposition home or self-care (01) | DRG 885 ==
LOC: C.EDB 14:26 → C.MHU 18:31
PROVIDERS: ADMIT Psychiatry & Neurology Psychiatry; ATTEND Psychiatry & Neurology Psychiatry
DX: F25.0 Schizoaffective disorder, bipolar type (principal); R45.851 Suicidal ideations; R56.9 Unspecified convulsions; T43.596A Underdosing of other antipsychotics and neuroleptics, initial encounter; Z91.128 Patient's intentional underdosing of medication regimen for other reason; Z91.14 Patient's other noncompliance with medication regimen; Z62.810 Personal history of physical and sexual abuse in childhood; Z91.5 Personal history of self-harm; Z79.899 Other long term (current) drug therapy

== ENCOUNTER 2020-03-01 13:18 | Inpatient (IN) ==
--- NOTE | 2020-03-01 13:52 | Emergency Department Note ---
History of Present Illness General Chief complaint: Mental Health Evaluation Stated complaint: MHID Time Seen by Provider: 03/01/20 13:32 History of Present Illness Provider complaint: Homicidal and suicidal ideation Onset (ago): week(s) 3 54-year-old female with history of bipolar disorder and multiple psychiatric hospitalizations in the past presents to the emergency department for homicidal and suicidal ideation. Patient states she is having auditory hallucinations. She states she always has auditory hallucinations at baseline and usually they are "happy voices" however lately they have been mean to her. She states the voices are telling her to drown her and upon that is behind the house. Voices are also telling her to hurt herself. She states she has been hearing these voices and they have been telling her to do these things for the last 3 weeks. Patient also reports she feels that at night someone is underneath her bed and someone is jumping on top of her bed while she is sleeping. She reports difficulty sleeping, decreased energy, difficulties concentrating, and reports she has been feeling guilty about how she has been making her field in their marriage and is afraid that he is going to take her out of the house. No drugs or alcohol usage. Home Medications Home Medications Medication Instructions Recorded Confirmed Type bupropion HCl 150 mg tablet,12 hr 150 mg PO BID 01/20/20 03/01/20 History sustained-release clonazepam 0.5 mg tablet 0.5 mg PO BID PRN 01/20/20 03/01/20 History escitalopram oxalate 20 mg tablet 20 mg PO DAILY 01/20/20 03/01/20 History hydroxyzine HCl 25 mg tablet 25 mg PO TID PRN 01/20/20 03/01/20 History lamotrigine 200 mg tablet 200 mg PO BID 01/20/20 03/01/20 History lamotrigine 100 mg tablet 100 mg PO DAILY 01/25/20 03/01/20 History topiramate 200 mg capsule,extended 400 mg PO .COMPLEX 90 Days #60 cap 01/25/20 03/01/20 Rx release 24 hr topiramate 50 mg capsule,extended 50 mg PO .COMPLEX #30 cap 01/25/20 03/01/20 Rx release 24 hr Ca-soy-blk fetsu-wqvvs-eop-caf 1 tab PO WM 03/01/20 03/01/20 History [Estroplus Max Strength] Allergies Allergy/AdvReac Type Severity Reaction Status Date / Time aspartame Allergy Unknown seizure Unverified 03/01/20 13:39 like episode bupivacaine Allergy Unknown Unknown Verified 03/01/20 13:39 diphenhydramine Allergy Unknown seizure Unverified 03/01/20 13:39 like episode meperidine Allergy Unknown Unknown Verified 03/01/20 13:39 pseudoephedrine Allergy Unknown seizure Unverified 03/01/20 13:39 like episode epinephrine AdvReac Unknown seizure Unverified 03/01/20 13:39 like emotions lidocaine AdvReac Unknown seizure Unverified 03/01/20 13:39 like emotions. Past Med/Surg History Surgical History History of section History of cholecystectomy History of hysterectomy History of wisdom tooth extraction Family History Father Anxiety Cancer Mother Depression Epilepsy Fibromyalgia Heart disease Sister Depression Anxiety Hypertension Sarcoidosis Grandmother (Maternal) Depression Family history of bipolar disorder Grandmother (Paternal) Depression Anxiety Heart disease Social History Preferred Language: Sinhala Feels Safe at Home: Yes Smoking Status: Former smoker Review of Systems A total of 10 systems reviewed and were otherwise negative Physical Exam Vital Signs Vital Signs - 24 hr 03/01/20 13:20 Temperature 37.2 C Temperature Source Oral Pulse Rate 87 Pulse Rhythm Regular Respiratory Rate 18 Respiratory Effort / Characteristics Non-Labored Spontaneous Respiratory Depth Normal Respiratory Pattern Regular Blood Pressure 166/84 H Blood Pressure Mean 111 Pulse Oximetry 95 Oxygen Delivery Method Room Air Sepsis Recent Fever Within 48 Hours No Sepsis New/Unexplained Change in Mental Status No Sepsis Action Taken by Nursing No Action Required Physical Exam EYES: Conjunctivae and EOM are normal. Pupils are equal, round, and reactive to light. Right eye exhibits no discharge. Left eye exhibits no discharge. No scleral icterus. NECK: Normal range of motion. Neck supple. No JVD present. No spinous process tenderness present. No carotid bruit present. No rigidity. No tracheal deviation and normal range of motion present. No Brudzinski's sign and no Kernig's sign noted. PULM/CHEST: No respiratory distress ABD: The abdomen is soft. MUSC/SKEL: Normal range of motion. There is no peripheral edema, tenderness or deformity. NEURO: She is alert and oriented to person, place, and time. She has normal strength. No cranial nerve deficit or sensory deficit. Coordination and gait normal. GCS eye subscore is 4. GCS verbal subscore is 5. GCS motor subscore is 6. Cerebellar tests wnl. PSYCH: Auditory hallucinations. Positive suicidal and homicidal ideation. Course Course 1335: The patient was evaluated in room A8. A complete history and physical exam was performed. 1450: Vital signs stable. Patient medically cleared. Patient placed in observation at this time. 1630: Patient admitted to 3 S. Medical Decision Making Laboratory Data Result diagrams: 03/01/20 13:51 03/01/20 13:51 Lab Results 03/01/20 03/01/20 03/01/20 Range/Units 13:51 13:51 13:51 WBC 8.84 (4.8-10.8) K/uL RBC 4.63 (4.2-5.4) M/uL Hgb 13.8 (12.0-16.0) g/dL Hct 41.6 (37-47) % MCV 89.8 (80-100) fL MCH 29.8 (25-34) pg MCHC 33.2 (32-36) g/dL RDW Std Deviation 46.0 (36.4-46.3) fL RDW Coeff of Migdalia 14.0 (11.5-14.5) % Plt Count 285 (130-400) K/uL MPV 8.5 (7.4-10.4) fL Immature Gran % (Auto) 0.7 % Neut % (Auto) 61.8 % Lymph % (Auto) 22.7 % Grady % (Auto) 8.3 % Eos % (Auto) 6.0 % Baso % (Auto) 0.5 % Immature Gran # (Auto) 0.06 H (0.00-0.02) K/uL Neut # (Auto) 5.47 (1.4-6.5) K/uL Lymph # (Auto) 2.01 (1.2-3.4) K/uL Grady # (Auto) 0.73 H (0.11-0.59) K/uL Eos # (Auto) 0.53 H (0-0.5) K/uL Baso # (Auto) 0.04 (0-0.2) K/uL Sodium 140 (136-145) mmol/L Potassium 3.9 (3.5-5.1) mmol/L Chloride 112 H (98-107) mmol/L Carbon Dioxide 22 (21-32) mmol/L Anion Gap 6.0 (3-11) BUN 21 H (7-18) mg/dl Creatinine 0.91 (0.6-1.2) mg/dl Est Cr Clr Drug Dosing 81.7 ml/min Est GFR ( Amer) 82.3 Est GFR (Non-Af Amer) 71.0 BUN/Creatinine Ratio 22.6 H (10-20) Glucose 79 (70-99) mg/dl Calcium 9.0 (8.5-10.1) mg/dl Total Bilirubin 0.2 (0.2-1) mg/dl AST 18 (15-37) U/L ALT 27 (12-78) U/L Alkaline Phosphatase 132 H (45-117) U/L Total Protein 7.4 (6.4-8.2) gm/dl Albumin 3.8 (3.4-5.0) gm/dl Globulin 3.6 (2.5-4.0) gm/dl Albumin/Globulin Ratio 1.1 (0.9-2) TSH 2.870 (0.300-4.500) uIu/ml Urine Color Urine Appearance (Clear) Urine pH (4.5-7.5) Ur Specific [place] (1.000-1.030) Urine Protein (Negative) Urine Glucose (UA) (Negative) Urine Ketones (Negative) Urine Blood (Negative) Urine Nitrite (Negative) Urine Bilirubin (Negative) Urine Urobilinogen (Negative) Ur Leukocyte Esterase (Negative) Urine WBC (Auto) (0-5) /hpf Urine RBC (Auto) (0-4) /hpf U Hyaline Cast (Auto) (0-5) /lpf U Epithel Cells (Auto) (0-5) /lpf Urine Bacteria (Auto) (Negative) Salicylates < 1.7 L (2.8-20) mg/dl Urine Opiates Screen (Neg) Ur Methadone, Qual (Neg) Acetaminophen < 2 L (10-30) ug/ml Urine Barbiturates (Neg) Ur Phencyclidine (PCP) (Neg) U Amphetamin/Meth Scrn (Neg) MDMA (Ecstasy) Screen (Neg) U Benzodiazepines Scrn (Neg) Ur Cocaine Metabolite (Neg) U Marijuana (THC) Screen (Neg) Ethyl Alcohol mg/dL (0-3) mg/dl 03/01/20 03/01/20 03/01/20 Range/Units 13:51 14:40 14:40 WBC (4.8-10.8) K/uL RBC (4.2-5.4) M/uL Hgb (12.0-16.0) g/dL Hct (37-47) % MCV (80-100) fL MCH (25-34) pg MCHC (32-36) g/dL RDW Std Deviation (36.4-46.3) fL RDW Coeff of Migdalia (11.5-14.5) % Plt Count (130-400) K/uL MPV (7.4-10.4) fL Immature Gran % (Auto) % Neut % (Auto) % Lymph % (Auto) % Grady % (Auto) % Eos % (Auto) % Baso % (Auto) % Immature Gran # (Auto) (0.00-0.02) K/uL Neut # (Auto) (1.4-6.5) K/uL Lymph # (Auto) (1.2-3.4) K/uL Grady # (Auto) (0.11-0.59) K/uL Eos # (Auto) (0-0.5) K/uL Baso # (Auto) (0-0.2) K/uL Sodium (136-145) mmol/L Potassium (3.5-5.1) mmol/L Chloride (98-107) mmol/L Carbon Dioxide (21-32) mmol/L Anion Gap (3-11) BUN (7-18) mg/dl Creatinine (0.6-1.2) mg/dl Est Cr Clr Drug Dosing ml/min Est GFR ( Amer) Est GFR (Non-Af Amer) BUN/Creatinine Ratio (10-20) Glucose (70-99) mg/dl Calcium (8.5-10.1) mg/dl Total Bilirubin (0.2-1) mg/dl AST (15-37) U/L ALT (12-78) U/L Alkaline Phosphatase (45-117) U/L Total Protein (6.4-8.2) gm/dl Albumin (3.4-5.0) gm/dl Globulin (2.5-4.0) gm/dl Albumin/Globulin Ratio (0.9-2) TSH (0.300-4.500) uIu/ml Urine Color Yellow Urine Appearance Clear (Clear) Urine pH 6.0 (4.5-7.5) Ur Specific [place] 1.010 (1.000-1.030) Urine Protein Negative (Negative) Urine Glucose (UA) Negative (Negative) Urine Ketones Negative (Negative) Urine Blood Negative (Negative) Urine Nitrite Negative (Negative) Urine Bilirubin Negative (Negative) Urine Urobilinogen Negative (Negative) Ur Leukocyte Esterase 1+ H (Negative) Urine WBC (Auto) 1-5 (0-5) /hpf Urine RBC (Auto) 0-4 (0-4) /hpf U Hyaline Cast (Auto) 0 (0-5) /lpf U Epithel Cells (Auto) >30 H (0-5) /lpf Urine Bacteria (Auto) Negative (Negative) Salicylates (2.8-20) mg/dl Urine Opiates Screen Neg (Neg) Ur Methadone, Qual Neg (Neg) Acetaminophen (10-30) ug/ml Urine Barbiturates Neg (Neg) Ur Phencyclidine (PCP) Neg (Neg) U Amphetamin/Meth Scrn Neg (Neg) MDMA (Ecstasy) Screen Pos H (Neg) U Benzodiazepines Scrn Neg (Neg) Ur Cocaine Metabolite Neg (Neg) U Marijuana (THC) Screen Neg (Neg) Ethyl Alcohol mg/dL < 3.0 (0-3) mg/dl MDM Narrative Observation note Indication: Psychiatric evaluation/placement Patient, with bipolar disorder, seizures, was first seen at 1335 hrs and the observation time began at 1450 and was necessary in order to have psychiatric evaluation and psychiatric placement. Upon re-evaluation, 1 hour and 40 minutes of observation revealed that the patient should be admitted for inpatient psychiatric treatment. Disposition date and time March 01, 2020 1630. Impression & Plan Auditory hallucinations, Homicidal ideation, Suicidal ideation Discharge Plan Visit Data Chief Complaint: Mental Health Evaluation Stated Complaint: MHID ED Provider: Inocente Menjivar Discharge Problem: Auditory hallucinations, Homicidal ideation, Suicidal ideation Patient Disposition: Admitted As Inpatient Forms Stand Alone Forms: [facility], Suicide Prevention Resources Prescriptions Prescriptions: No Action lamotrigine 200 mg tablet 200 mg PO BID RF: 0 bupropion HCl 150 mg tablet sustained-release 12 hr 150 mg PO BID RF: 0 hydroxyzine HCl 25 mg tablet 25 mg PO TID PRN (Reason: Anxiety) RF: 0 escitalopram oxalate 20 mg tablet 20 mg PO DAILY RF: 0 clonazepam 0.5 mg tablet 0.5 mg PO BID PRN (Reason: Anxiety) RF: 0 lamotrigine 100 mg tablet 100 mg PO DAILY RF: 0 Trokendi XR 200 mg capsule,extended release 24hr 400 mg PO .COMPLEX 90 Days Qty: 60 RF: 2 Trokendi XR 50 mg capsule,extended release 24hr 50 mg PO .COMPLEX Qty: 30 RF: 2 Estroplus Max Strength 90-60 mg Tablet 1 tab PO WM RF: 0 Referrals Referrals: Melquiades oBnd [Primary Care Provider] -
[2020-03-01 14:04] LABS: Basophils # (auto) 0.04 K/uL (0-0.2); Basophils % (auto) 0.5 %; Eosinophils # (auto) 0.53 K/uL (0-0.5); Hematocrit (blood only) 41.6 % (37-47); Hemoglobin 13.8 g/dL (12.0-16.0); Immature Granulocytes # (auto) 0.06 K/uL (0.00-0.02); Immature Granulocytes % (auto) 0.7 %; Lymphocytes # (auto) 2.01 K/uL (1.2-3.4); Lymphocytes % (auto) 22.7 %; Mean Corpuscular Hemoglobin 29.8 pg (25-34); Mean Corpuscular Hgb Conc 33.2 g/dL (32-36); Mean Corpuscular Volume 89.8 fL (80-100); Mean Platelet Volume 8.5 fL (7.4-10.4); Monocytes # (auto) 0.73 K/uL (0.11-0.59); Monocytes % (auto) 8.3 %; Neutrophils # (auto) 5.47 K/uL (1.4-6.5); Neutrophils % (auto) 61.8 %; Platelet Count 285 K/uL (130-400); Red Blood Count 4.63 M/uL (4.2-5.4); White Blood Count 8.84 K/uL (4.8-10.8)
[2020-03-01 14:19] LABS: Potassium 3.9 mmol/L (3.5-5.1)
[2020-03-01 14:31] LABS: Albumin Level 3.8 gm/dl (3.4-5.0); BUN Creatinine Ratio 22.6 (10-20); Creatinine Clr Calc Pharmacy 81.7 ml/min; Est GFR (African American) 82.3
[2020-03-01 14:38] LABS: Acetaminophen < 2 ug/ml (10-30); Salicylate < 1.7 mg/dl (2.8-20)
[2020-03-01 14:42] LABS: Albumin Globulin Ratio 1.1 (0.9-2); Bilirubin,Total 0.2 mg/dl (0.2-1); Globulin 3.6 gm/dl (2.5-4.0); Thyroid Stimulating Hormone 2.87 uIu/ml (0.300-4.500); Total Protein 7.4 gm/dl (6.4-8.2)
[2020-03-01 14:56] LABS: Appearance Urine Clear (Clear); Bacteria Urine Automated Negative (Negative); Bilirubin Urine Negative (Negative); Blood Urine Negative (Negative); Cast Urine Automated 0 /lpf (0-5); Color Urine Yellow; Epithelial Cell Urine Auto >30 /lpf (0-5); Glucose Urine UA Negative (Negative); Ketones Urine Negative (Negative); Leukocyte Esterase Urine 1+ (Negative); Nitrite Urine Negative (Negative); Protein Urine Negative (Negative); RBC Urine Automated 0-4 /hpf (0-4); Urobilinogen Urine Negative (Negative)
[2020-03-01 15:19] LABS: Amphetamines+Metham, Urine Neg (Neg); Barbiturates, Urine Neg (Neg); Benzodiazepine, Urine Neg (Neg); Cocaine, Urine Neg (Neg); MDMA (Ecstacy), Urine Pos (Neg); Methadone, Urine Neg (Neg); Opiate, Urine Neg (Neg); Phencyclidine, Urine Neg (Neg)
[2020-03-01] MEDS ORDERED: SODIUM CHLORIDE 0.65% NA SOLN 45 ML (OCEAN) PRN (16:25)
[2020-03-01] MEDS ORDERED: ALUMINUM/MAGNESIUM SUSP 30 ML UDC PO PRN (16:25)
[2020-03-01] MEDS ORDERED: ACETAMINOPHEN 325 MG TAB PO PRN (16:25)
[2020-03-01] MEDS ORDERED: BISMUTH SUBSALICYLATE PER ML OMNICELL CHARGE PO PRN (16:25)
[2020-03-01] MEDS ORDERED: MAGNESIUM HYDROXIDE SUSP 30 ML UDC PO PRN (16:25)
[2020-03-01] MEDS: lamoTRIgine 100 MG TAB PO SCH (21:18)
[2020-03-01] MEDS: clonazePAM 0.5 MG TAB PO PRN (21:21)
[2020-03-01] MEDS: TOPIRAMATE XR PO SCH ×2 (22:03→22:04)
[2020-03-02] MEDS: [UNRECOGNIZED DRUG - OTHER] PO SCH (08:21)
[2020-03-02] MEDS: lamoTRIgine 100 MG TAB PO SCH ×3 (08:21→21:23)
[2020-03-02] MEDS: clonazePAM 0.5 MG TAB PO PRN ×2 (12:32→21:26)
--- NOTE | 2020-03-02 14:14 | History & Physical ---
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 attention grossly intact and language grossly intact Estimated Intelligence: average estimated intelligence Insight: + fair insight (Patient seems to recognize that her perceptual disturbances are not real, and is willing to characterize them as her mind "playing tricks on [her].") Judgement: + fair judgement Vital Signs (Past 24 Hours): Last Vital Signs Temp 36.4 C L 03/02/20 06:00 Pulse 71 03/02/20 06:38 Resp 15 03/02/20 06:00 BP 134/85 03/02/20 06:38 Pulse Ox 95 03/01/20 19:40 Results & Data ([facility]) Laboratory Results Laboratory Results - last 24 hr 03/01/20 03/01/20 03/01/20 13:51 13:51 13:51 WBC 8.84 RBC 4.63 Hgb 13.8 Hct 41.6 MCV 89.8 MCH 29.8 MCHC 33.2 RDW Std Deviation 46.0 RDW Coeff of Migd[place] 14.0 Plt Count 285 MPV 8.5 Immature Gran % (Auto) 0.7 Neut % (Auto) 61.8 Lymph % (Auto) 22.7 [place] % (Auto) 8.3 Eos % (Auto) 6.0 Baso % (Auto) 0.5 Immature Gran # (Auto) 0.06 H Neut # (Auto) 5.47 Lymph # (Auto) 2.01 [place] # (Auto) 0.73 H Eos # (Auto) 0.53 H Baso # (Auto) 0.04 Sodium 140 Potassium 3.9 Chloride 112 H Carbon Dioxide 22 Anion Gap 6.0 BUN 21 H Creatinine 0.91 Est Cr Clr Drug Dosing 81.7 Est GFR ( Amer) 82.3 Est GFR (Non-Af Amer) 71.0 BUN/Creatinine Ratio 22.6 H Glucose 79 Calcium 9.0 Total Bilirubin 0.2 AST 18 ALT 27 Alkaline Phosphatase 132 H Total Protein 7.4 Albumin 3.8 Globulin 3.6 Albumin/Globulin Ratio 1.1 TSH 2.870 Urine Color Urine Appearance Urine pH Ur Specific [place] Urine Protein Urine Glucose (UA) Urine Ketones Urine Blood Urine Nitrite Urine Bilirubin Urine Urobilinogen Ur Leukocyte Esterase Urine WBC (Auto) Urine RBC (Auto) U Hyaline Cast (Auto) U Epithel Cells (Auto) Urine Bacteria (Auto) Salicylates < 1.7 L Urine Opiates Screen Ur Methadone, Qual Acetaminophen < 2 L Urine Barbiturates Ur Phencyclidine (PCP) U Amphetamin/Meth Scrn Urine MDEA MDMA (Ecstasy) Screen MDMA Urine MDMA U Benzodiazepines Scrn Ur Cocaine Metabolite U Marijuana (THC) Screen Ethyl Alcohol mg/dL 03/01/20 03/01/20 03/01/20 13:51 14:40 14:40 WBC RBC Hgb Hct MCV MCH MCHC RDW Std Deviation RDW Coeff of [place] Plt Count MPV Immature Gran % (Auto) Neut % (Auto) Lymph % (Auto) [place] % (Auto) Eos % (Auto) Baso % (Auto) Immature Gran # (Auto) Neut # (Auto) Lymph # (Auto) [place] # (Auto) Eos # (Auto) Baso # (Auto) Sodium Potassium Chloride Carbon Dioxide Anion Gap BUN Creatinine Est Cr Clr Drug Dosing Est GFR ( Amer) Est GFR (Non-Af Amer) BUN/Creatinine Ratio Glucose Calcium Total Bilirubin AST ALT Alkaline Phosphatase Total Protein Albumin Globulin Albumin/Globulin Ratio TSH Urine Color Yellow Urine Appearance Clear Urine pH 6.0 Ur Specific [place] 1.010 Urine Protein Negative Urine Glucose (UA) Negative Urine Ketones Negative Urine Blood Negative Urine Nitrite Negative Urine Bilirubin Negative Urine Urobilinogen Negative Ur Leukocyte Esterase 1+ H Urine WBC (Auto) 1-5 Urine RBC (Auto) 0-4 U Hyaline Cast (Auto) 0 U Epithel Cells (Auto) >30 H Urine Bacteria (Auto) Negative Salicylates Urine Opiates Screen Neg Ur Methadone, Qual Neg Acetaminophen Urine Barbiturates Neg Ur Phencyclidine (PCP) Neg U Amphetamin/Meth Scrn Neg Urine MDEA MDMA (Ecstasy) Screen Pos H MDMA Urine MDMA U Benzodiazepines Scrn Neg Ur Cocaine Metabolite Neg U Marijuana (THC) Screen Neg Ethyl Alcohol mg/dL < 3.0 03/01/20 14:40 WBC RBC Hgb Hct MCV MCH MCHC RDW Std Deviation RDW Coeff of [place] Plt Count MPV Immature Gran % (Auto) Neut % (Auto) Lymph % (Auto) [place] % (Auto) Eos % (Auto) Baso % (Auto) Immature Gran # (Auto) Neut # (Auto) Lymph # (Auto) [place] # (Auto) Eos # (Auto) Baso # (Auto) Sodium Potassium Chloride Carbon Dioxide Anion Gap BUN Creatinine Est Cr Clr Drug Dosing Est GFR ( Amer) Est GFR (Non-Af Amer) BUN/Creatinine Ratio Glucose Calcium Total Bilirubin AST ALT Alkaline Phosphatase Total Protein Albumin Globulin Albumin/Globulin Ratio TSH Urine Color Urine Appearance Urine pH Ur Specific [place] Urine Protein Urine Glucose (UA) Urine Ketones Urine Blood Urine Nitrite Urine Bilirubin Urine Urobilinogen Ur Leukocyte Esterase Urine WBC (Auto) Urine RBC (Auto) U Hyaline Cast (Auto) U Epithel Cells (Auto) Urine Bacteria (Auto) Salicylates Urine Opiates Screen Ur Methadone, Qual Acetaminophen Urine Barbiturates Ur Phencyclidine (PCP) U Amphetamin/Meth Scrn Urine MDEA Pending MDMA (Ecstasy) Screen MDMA Pending Urine MDMA Pending U Benzodiazepines Scrn Ur Cocaine Metabolite U Marijuana (THC) Screen Ethyl Alcohol mg/dL Current Inpatient Medications Current Inpatient Medications: Current Inpatient Medications Acetaminophen (Tylenol) 650 mg PO Q4H PRN PRN Reason: Headache or Minor Fever Stop: 03/31/20 16:24 Al Hydrox/Mg Hydrox/Simethicone (Maalox) 30 ml PO Q4H PRN PRN Reason: GI Upset Stop: 03/31/20 16:24 Bismuth Subsalicylate (Kaopectate) 15 ml PO PRN PRN PRN Reason: Loose Stool Stop: 03/31/20 16:24 Clonazepam (Klonopin) 0.5 mg PO BID PRN PRN Reason: Anxiety Stop: 03/31/20 20:45 Last Admin: 03/02/20 12:32 Dose: 0.5 mg Documented by: Hydroxyzine HCl (Vistaril) 50 mg PO HSZ PRN PRN Reason: Insomnia Stop: 03/31/20 16:24 Hydroxyzine HCl (Vistaril) 25 mg PO Q4H PRN PRN Reason: Anxiety Stop: 03/31/20 16:24 Lamotrigine (Lamictal) 200 mg PO BID [facility] Stop: 03/31/20 20:59 Last Admin: 03/02/20 08:21 Dose: 200 mg Documented by: Lamotrigine (Lamictal) 100 mg PO DAILY@1200 [facility] Stop: 04/01/20 11:59 Last Admin: 03/02/20 12:28 Dose: 100 mg Documented by: Magnesium Hydroxide (Milk Of Magnesia) 30 ml PO DAILY PRN PRN Reason: Constipation Stop: 03/31/20 16:24 Estroplus~Non- Formulary Patient's Own Med 1 ea PO DAILY [facility] Stop: 04/01/20 08:59 Last Admin: 03/02/20 08:21 Dose: 1 tab Documented by: Sodium Chloride ([place] Nasal) 1 - 2 sprays NA PRN PRN PRN Reason: Nasal Dryness/Congestion Stop: 03/31/20 16:24 Topiramate (Qudexy Xr) 1 ea PO HS [facility] Stop: 03/31/20 21:59 Last Admin: 03/01/20 22:04 Dose: 1 ea Documented by: Topiramate (Qudexy Xr) 2 ea PO HS [facility] Stop: 03/31/20 21:59 Last Admin: 03/01/20 22:03 Dose: 2 ea Documented by:
[2020-03-02] MEDS ORDERED: PERPHENAZINE 2 MG TABLET PO STA (16:00)
[2020-03-02] MEDS ORDERED: BENZTROPINE MESYLATE 1 MG TAB PO PRN (16:25)
[2020-03-02] MEDS ORDERED: BuPROPion SR 150 MG TABCR PO SCH (21:00)
[2020-03-02] MEDS: PERPHENAZINE 2 MG TABLET PO SCH (21:24)
[2020-03-02] MEDS: TOPIRAMATE XR PO SCH ×2 (21:25)
--- NOTE | 2020-03-03 07:05 | Psychiatric Progress Note ---
Date of Service March 03, 2020 Impression / Recommendations Impression This 54-year-old female with schizoaffective disorder who was admitted voluntarily with HI towards her and suicidal thoughts as well as auditory hallucinations. She has been angry at her for several years, and they often argue, which contributes to unstable mood. She states her has secured her medications and response to her threat of suicide, and had previously removed weapons from the home, but this will need to be confirmed with him, and we are recommending a family meeting. The patient is not having significant mood symptoms here, and predominant symptoms are psychotic in nature (command hallucinations), although these have improved from admission. On admission she was started on low-dose perphenazine, which she is tolerating so far. (1) Schizoaffective disorder: 03/02/2020 -It is noted that in the past the patient's care the diagnosis of bipolar disorder. A review of her history, however, suggest that she appears to have met criteria for schizophrenia before also developing substantial and persistent mood symptoms, including rios and hypomania. The content of her past delusions, the invasive nature of her perceptual disturbances, and other clinical features are suggestive of schizophrenia. -Currently, the patient says that she does not feel that she is troubled by mood symptoms, and focuses, perhaps appropriately, on her marital stress and disappointments. -The plan is to continue mood stabilizing agents, and we are adding an antipsychotic medication, namely perphenazine 2 mg twice a day. We, as taniya rated, will titrate this medication or, if the patient does not respond or is unable to tolerate perphenazine our next choice is likely Gemini, given her documented favorable response in the past. 03/03 -Hallucinations improving. Denies SI and HI here, but has not yet addressed stressors with , so recommend a family meeting. (2) Auditory hallucinations: 03/02/2020 -Patient reports that she experiences auditory hallucinations throughout the day, every day, and that these have been present, almost without stop, since she was in her 20s. She refers to these experiences as "my voices," and notes that, generally speaking, she does not find them to be particularly distasteful or troubling. In fact, she suggests that sometimes the "voices" tend to keep her company. Nevertheless, she also acknowledges that she sometimes experiences command auditory hallucinations, including hallucinations that command her to engage in dangerous or antisocial behaviors. -The patient reports that she would like the voices to stop because they have the potential to disturb her, and she recognizes the length between the voices and her thoughts of suicide and homicide, even though she also tells us that she has learned to never act on any command hallucination that includes a command to engage in a behavior that is not consistent with her sense of the kind of person she is, her episcopalian believes, and, also, she notes that she would not follow command hallucination if she knew it was against the law to do so. -The patient has a reported past history of favorable response to Geodon 80 mg twice a day. However, the patient tells us that she believes this medication was only partially effective, may have caused weight gain, and the benefit was s hort-lived. Accordingly, we will first try perphenazine starting at 2 mg twice a day. (3) Suicidal ideation: 03/02/2020 -The patient has been admitted to the [facility] inpatient psychiatric unit at [facility], and is monitored on special precautions for safety. -The patient is encouraged to participate in individual, group, and activity therapies as a way of improving her individual coping strategies, as well as reinforcing the patient's resolution that she should never respond to a hallucination that tells her to do something that she knows is wrong, including anything that is illegal. -Today, the patient reports that she does not have any suicidal plan or intent. She does report that she has heard "voices" that have told her to hurt herself, but she notes that she does not believe that she should act on these thoughts, and so she will not. However, we believe that it is necessary to further monitor, assess, and treat the patient in order to assure that reentry into the community will be safe. -The patient reportedly has a history of favorably responding to Geodon 80 mg twice a day in the past, although she, herself, does not specifically recall the name of this medication. Report is that "what ever" medication she had taken previously helped, but "[the benefit] did not last long." Currently, I will first offer the patient a trial of perphenazine 2 mg twice a day and titrate as tolerated and indicated. This medication will be supplemented with as needed benztropine given her history of possible extraparametal side effects associated with aripiprazole. In the event that perphenazine is not successful in helping the patient's auditory hallucinations to resolved, we will consider changing to a different medication such as Geodon. 03/03 -Encourage patient to work on her safety plan, and review with (she indicates he has already removed weapons and he keeps her medications secured). (4) Homicidal ideation: 03/02/2020 -The patient has been admitted to the [facility] unit at [facility], and is monitored on special precautions for safety. -The patient is encouraged to participate in individual, group, and activity therapies as a way of improving her individual coping strategies, as well as reinforcing the patient's resolution that she should never respond to a hallucination that tells her to do something that she knows is wrong, including anything that is illegal. -Today, the patient reports that she does not have any homicidal intent, although she admits that she had had a fantasy of "throwing [her] in the pond" and drowning him. The patient tells us today that she has no intent to act on these thoughts and, in fact, laughs because she knows that she could not actually, physically, throw her into a pond, nor could she successfully force his head underwater. Nevertheless, we believe that it is necessary to further monitor, assess, and treat the patient in order to assure that reentry into the community will be safe. -The patient reportedly has a history of favorably responding to Geodon 80 mg twice a day in the past, although she, herself, does not specifically recall the name of this medication. Report is that "what ever" medication she had taken previously helped, but "[the benefit] did not last long." Currently, I will first offer the patient a trial of perphenazine 2 mg twice a day and titrate as tolerated and indicated. This medication will be supplemented with as needed benztropine given her history of possible extrapyramidal side effects associated with aripiprazole. In the event that perphenazine is not successful in helping the patient's auditory hallucinations to resolved, we will consider changing to a different medication such as Geodon. 03/03 -Encourage patient to work on healthy coping skills to use when she is angry at her , with a specific plan to utilize if she has command auditory hallucinations to harm him or thoughts/urges to harm him. She does not want to discuss these thoughts with her directly, but would benefit from at the very least discussing their frequent arguments and discord and potential ways to mitigate this. 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 (She, herself, refers to them as "pseudoseizures" and says that she knows that they are called pseudoseizures because they are not "real.") -Today, she reports that these pseudoseizures are very brief, usually lasting no more than a few seconds, and are characterized by tonic clonic movements, without loss of bowel or bladder control. She demonstrated a pseudoseizure in the office today, and it consisted of her placing both hands in the air, and then shaking her hands, arms, head, and neck rapidly for perhaps 2 seconds and then stopping. When asked how she knows that this is what her seizures look like, she explains that she is, of course, present when they happen, so she knows how they present. -Patient believes that she is taking Topamax and lamotrigine for "pseudoseizures." This may be the case, but my plan will be to continue these medications because they may, in her case, serve as mood stabilizers. Inventory Assets Strengths: Motivated to treatment. Positive relationship with outpatient providers. Adherent with medication recommendations. Supportive family. History of favorable response to treatment in the past.. Needs: Resolution of command auditory hallucinations. Further assessment to assure that the patient's thoughts of homicide and suicide are genuinely not linked to suicidal or homicidal intent. Risk Factors Assessment Male: No : Yes Do You Have Access To A Gun?: No (Patient reports that her removed the guns from her house following her 2017 psychiatric admission. He also reportedly removed all of her pill bottles from the house more recently.) Health Problems: Yes Mental Health Diagnoses: Yes Substance Use Disorders: No Previous Attempt: Yes Previous Attempt; Highly Lethal: Yes Previous Attempt; Planned: Yes Previous Attempt; Didn't Tell Anyone: No Previous Psychiatric Hospitalization: Yes Hopelessness: No Smoker: No Protective Factors Assessment Methodist Beliefs: Yes (Patient describes herself as "Yazidism" and says that she reads the Bible, although she tends not to go to druze. She mentioned that the last time she went to druze she came home and began to imagine that "Per and the devil" were fighting against each other in her home. Patient does say that her sense of right and wrong comes from the 10 commandments) : Yes Responsible for Young Children: No Employed: No Stable Relationships: Yes Supportive Family: Yes (Patient acknowledges that her is actually supportive, has called her several times since she arrived here, and has attempted to help her by removing dangerous objects from their home, etc.) Good Rapport with Provider: Yes Absence of Any Risk Factors Above: No Interval History Identifying Information SILVERIO MEAD is a 54-year-old F who currently lives with her in [facility]. She has a history of schizoaffective disorder, and and was admitted on 03/01/20 16:26 on a 201 voluntary agreement because of both suicidal and homicidal ideations. Chief Complaint " Getting some stuff off my chest". Review of Systems Sleep Information Total Hours of Sleep: 6.5 Meal Information Percent Meal Consumed - Breakfast: 100 Percent Meal Consumed - Lunch: 100 Percent Meal Consumed - Dinner: 100 Subjective Subjective Patient was seen & assessed and interval progress reviewed with nursing and social work. Staff report she told some staff she could see herself acting on thoughts to kill her , but told other staff she would never act on them. She refused to sign ROIs for family or schedule a family meeting. On my assessment today, she states that group has been helpful, and that she slept "really well" last night, which she attributes to the perphenazine. She states her mood had improved until she talked to her on the phone this morning and "we had a little spat." She states that he has a habit of trailing off at the ends of his sentences and mumbling incoherently, but gets extremely angry when she says "what?" This morning, she said "what?" during the conversation, he got very upset, and ended the call. This resulted in her mood precipitously declining, which she states is a longstanding pattern of her interactions with her . She is willing to have a meeting with him, but states she does not want him to know that she was thinking of killing him, as "I don't want him to be afraid of me, I'm a lot bigger than him." She states that she feels safe here, and does not intend to harm herself or anyone else, but is not sure how to address the stressors at home. She told staff that she only stays with him because she likes where they live and her dogs, and she has nowhere else to go. She describes her mood as "deflated," which she attributes to the interaction with her . She continues to experience auditory hallucinations of voices, but they have decreased since admission. Physical Exam Psychiatric Orientation: alert and cooperative Apperance: appropriately dressed, appropriately groomed and appeared stated age Eye Contact: good eye contact Motor Behavior: steady gait and station and no abnormal motor movements Speech: normal rate/rhythm/volume of speech Affect: euthymic affect "Deflated." Thought Process: goal directed thought process Thought Content: reality based without delusions Suicidal Thoughts: denies suicidal thoughts Homicidal Thoughts: denies homicidal thoughts Hallucinations: + auditory hallucinations Cognition: recent memory grossly intact, attention grossly intact and language grossly intact Insight: + fair insight Judgement: + fair judgement Vital Signs (Past 24 Hours) Last Vital Signs Temp 36.4 C L 03/03/20 06:30 Pulse 79 03/03/20 06:30 Resp 18 03/03/20 06:30 BP 114/79 03/03/20 06:30 Pulse Ox 95 03/01/20 19:40 Results & Data ([facility]) Current Inpatient Medications Current Inpatient Medications: Current Inpatient Medications Acetaminophen (Tylenol) 650 mg PO Q4H PRN PRN Reason: Headache or Minor Fever Stop: 03/31/20 16:24 Al Hydrox/Mg Hydrox/Simethicone (Maalox) 30 ml PO Q4H PRN PRN Reason: GI Upset Stop: 03/31/20 16:24 Benztropine Mesylate (Cogentin) 1 mg PO BID PRN PRN Reason: EPS Stop: 04/01/20 16:24 Bismuth Subsalicylate (Kaopectate) 15 ml PO PRN PRN PRN Reason: Loose Stool Stop: 03/31/20 16:24 Bupropion HCl (Wellbutrin-Sr) 150 mg PO BID [facility] Stop: 04/01/20 20:59 Last Admin: 03/02/20 21:24 Dose: Not Given Documented by: Clonazepam (Klonopin) 0.5 mg PO BID PRN PRN Reason: Anxiety Stop: 03/31/20 20:45 Last Admin: 03/02/20 21:26 Dose: 0.5 mg Documented by: Escitalopram Oxalate (Lexapro Tab) 20 mg PO DAILY [facility] Stop: 04/02/20 08:59 Hydroxyzine HCl (Vistaril) 50 mg PO HSZ PRN PRN Reason: Insomnia Stop: 03/31/20 16:24 Hydroxyzine HCl (Vistaril) 25 mg PO Q4H PRN PRN Reason: Anxiety Stop: 03/31/20 16:24 Hydroxyzine HCl (Vistaril) 25 mg PO TID PRN PRN Reason: Anxiety Stop: 04/01/20 15:59 Lamotrigine (Lamictal) 200 mg PO BID [facility] Stop: 03/31/20 20:59 Last Admin: 03/02/20 21:23 Dose: 200 mg Documented by: Lamotrigine (Lamictal) 100 mg PO DAILY@1200 [facility] Stop: 04/01/20 11:59 Last Admin: 03/02/20 12:28 Dose: 100 mg Documented by: Magnesium Hydroxide (Milk Of Magnesia) 30 ml PO DAILY PRN PRN Reason: Constipation Stop: 03/31/20 16:24 Estroplus~Non- Formulary Patient's Own Med 1 ea PO DAILY [facility] Stop: 04/01/20 08:59 Last Admin: 03/02/20 08:21 Dose: 1 tab Documented by: Perphenazine (Trilafon) 2 mg PO BID [facility] Stop: 04/01/20 20:59 Last Admin: 03/02/20 21:24 Dose: 2 mg Documented by: Sodium Chloride ([place] Nasal) 1 - 2 sprays NA PRN PRN PRN Reason: Nasal Dryness/Congestion Stop: 03/31/20 16:24 Topiramate (Qudexy Xr) 1 ea PO HS [facility] Stop: 03/31/20 21:59 Last Admin: 03/02/20 21:25 Dose: 1 ea Documented by: Topiramate (Qudexy Xr) 2 ea PO HS [facility] Stop: 03/31/20 21:59 Last Admin: 03/02/20 21:25 Dose: 2 ea Documented by: Mental Health & Subst Abuse Tx Psychiatrist Name of Psychiatrist: [facility] - MARV Loo Psychiatrist's Date of Appointment with Psychiatrist: 03/20/20 Psychiatric Appointment Comment: [address] [place] [address], DONOVAN Rivas Therapist Name of Therapist: [facility] - Shama Bowman Therapist's Date of Therapist Appointment: 03/13/20 Time of Therapist Appointment: 3:00pm Therapy Appointment Comment: [address] [place] [address] [facility] Supervisor Name of [facility] Supervisor: None Post Discharge Appointments Primary Care Physician Name Of Family Doctor: . Primary Care Phone Number: . Date of Appointment with PCP: 03/20/20 Provider Appointment Comment: . Contact Information Discharge Discharge Address: [address] [place] [address] [place] Simon [id number]
[2020-03-03] MEDS ORDERED: BuPROPion SR 150 MG TABCR PO SCH (09:00)
[2020-03-03] MEDS: ESCITALOPRAM OXALATE 20 MG TAB PO SCH (09:05)
[2020-03-03] MEDS: PERPHENAZINE 2 MG TABLET PO SCH ×2 (09:05→21:37)
[2020-03-03] MEDS: lamoTRIgine 100 MG TAB PO SCH ×3 (09:05→21:37)
[2020-03-03] MEDS: [UNRECOGNIZED DRUG - OTHER] PO SCH (09:06)
[2020-03-03] MEDS: BuPROPion SR 150 MG TABCR PO SCH (13:32)
[2020-03-03] MEDS: TOPIRAMATE XR PO SCH ×2 (21:38)
--- NOTE | 2020-03-04 06:39 | Psychiatric Progress Note ---
Date of Service March 04, 2020 Impression / Recommendations Impression 54-year-old female with schizoaffective disorder who was admitted voluntarily with HI towards her , suicidal thoughts, and auditory hallucinations. She has been angry at her for several years, and they often argue, which contributes to unstable mood. She states her has secured her medications in response to her threat of suicide, and had previously removed weapons from the home, but this will need to be confirmed with him, and they have a family meeting tomorrow morning. The patient is not having significant mood symptoms here, and predominant symptoms are psychotic in nature (command hallucinations), although these have improved from admission. On admission she was started on low-dose perphenazine, which she is tolerating so far. (1) Schizoaffective disorder: 03/02/2020 -It is noted that in the past the patient's care the diagnosis of bipolar disorder. A review of her history, however, suggest that she appears to have met criteria for schizophrenia before also developing substantial and persistent mood symptoms, including rios and hypomania. The content of her past delusions, the invasive nature of her perceptual disturbances, and other clinical features are suggestive of schizophrenia. -Currently, the patient says that she does not feel that she is troubled by mood symptoms, and focuses, perhaps appropriately, on her marital stress and disappointments. -The plan is to continue mood stabilizing agents, and we are adding an antipsychotic medication, namely perphenazine 2 mg twice a day. We, as tolerated, will titrate this medication or, if the patient does not respond or is unable to tolerate perphenazine our next choice is likely Billdon, given her documented favorable response in the past. 03/03 -Hallucinations improving. Denies SI and HI here, but has not yet addressed stressors with , so recommend a family meeting. 03/04 -Family meeting with tomorrow morning. (2) Auditory hallucinations: 03/02/2020 -Patient reports that she experiences auditory hallucinations throughout the day, every day, and that these have been present, almost without stop, since she was in her 20s. She refers to these experiences as "my voices," and notes that, generally speaking, she does not find them to be particularly distasteful or troubling. In fact, she suggests that sometimes the "voices" tend to keep her company. Nevertheless, she also acknowledges that she sometimes experiences command auditory hallucinations, including hallucinations that command her to engage in dangerous or antisocial behaviors. -The patient reports that she would like the voices to stop because they have the potential to disturb her, and she recognizes the length between the voices and her thoughts of suicide and homicide, even though she also tells us that she has learned to never act on any command hallucination that includes a command to engage in a behavior that is not consistent with her sense of the kind of person she is, her spiritism believes, and, also, she notes that she would not follow command hallucination if she knew it was against the law to do so. -The patient has a reported past history of favorable response to Geodon 80 mg twice a day. However, the patient tells us that she believes this medication was only partially effective, may have caused weight gain, and the benefit was short-lived. Accordingly, we will first try perphenazine starting at 2 mg twice a day. 03/03 -AH continue to improve. (3) Suicidal ideation: 03/02/2020 -The patient has been admitted to the [facility] inpatient psychiatric unit at [facility], and is monitored on special precautions for safety. -The patient is encouraged to participate in individual, group, and activity therapies as a way of improving her individual coping strategies, as well as reinforcing the patient's resolution that she should never respond to a hallucination that tells her to do something that she knows is wrong, including anything that is illegal. -Today, the patient reports that she does not have any suicidal plan or intent. She does report that she has heard "voices" that have told her to hurt herself, but she notes that she does not believe that she should act on these thoughts, and so she will not. However, we believe that it is necessary to further monitor, assess, and treat the patient in order to assure that reentry into the community will be safe. -The patient reportedly has a history of favorably responding to Geodon 80 mg twice a day in the past, although she, herself, does not specifically recall the name of this medication. Report is that "what ever" medication she had taken previously helped, but "[the benefit] did not last long." Currently, I will first offer the patient a trial of perphenazine 2 mg twice a day and titrate as tolerated and indicated. This medication will be supplemented with as needed benztropine given her history of possible extraparametal side effects associated with aripiprazole. In the event that perphenazine is not successful in helping the patient's auditory hallucinations to resolved, we will consider changing to a different medication such as Geodon. 03/03 -Encourage patient to work on her safety plan, and review with (she indicates he has already removed weapons and he keeps her medications secured). (4) Homicidal ideation: 03/02/2020 -The patient has been admitted to the [facility] inpatient psychiatric unit at [facility], and is monitored on special precautions for safety. -The patient is encouraged to participate in individual, group, and activity therapies as a way of improving her individual coping strategies, as well as reinforcing the patient's resolution that she should never respond to a hallucination that tells her to do something that she knows is wrong, including anything that is illegal. -Today, the patient reports that she does not have any homicidal intent, although she admits that she had had a fantasy of "throwing [her] in the pond" and drowning him. The patient tells us today that she has no intent to act on these thoughts and, in fact, laughs because she knows that she could not actually, physically, throw her into a pond, nor could she successfully force his head underwater. Nevertheless, we believe that it is necessary to further monitor, assess, and treat the patient in order to assure that reentry into the community will be safe. -The patient reportedly has a history of favorably responding to Geodon 80 mg twice a day in the past, although she, herself, does not specifically recall the name of this medication. Report is that "what ever" medication she had taken previously helped, but "[the benefit] did not last long." Currently, I will first offer the patient a trial of perphenazine 2 mg twice a day and titrate as tolerated and indicated. This medication will be supplemented with as needed benztropine given her history of possible extrapyramidal side effects associated with aripiprazole. In the event that perphenazine is not successful in helping the patient's auditory hallucinations to resolved, we will consider changing to a different medication such as Geodon. 4/11 -Encourage patient to work on healthy coping skills to use when she is angry at her , with a specific plan to utilize if she has command auditory hallucinations to harm him or thoughts/urges to harm him. She does not want to discuss these thoughts with her directly, but would benefit from at the very least discussing their frequent arguments and discord and potential ways to mitigate this. 03/04 -Denying HI and working on safety plan, identifying healthy coping skills, and states she does not think she would ever act on these thoughts, feels able to seek treatment if they recur. 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 (She, herself, refers to them as "pseudoseizures" and says that she knows that they are called pseudoseizures because they are not "real.") -Today, she reports that these pseudoseizures are very brief, usually lasting no more than a few seconds, and are characterized by tonic clonic movements, without loss of bowel or bladder control. She demonstrated a pseudoseizure in the office today, and it consisted of her placing both hands in the air, and then shaking her hands, arms, head, and neck rapidly for perhaps 2 seconds and then stopping. When asked how she knows that this is what her seizures look like, she explains that she is, of course, present when they happen, so she knows how they present. -Patient believes that she is taking Topamax and lamotrigine for "pseudoseizures." This may be the case, but my plan will be to continue these medications because they may, in her case, serve as mood stabilizers. Inventory Assets Strengths: Motivated to treatment. Positive relationship with outpatient providers. Adherent with medication recommendations. Supportive family. History of favorable response to treatment in the past.. Needs: Resolution of command auditory hallucinations. Further assessment to assure that the patient's thoughts of homicide and suicide are genuinely not linked to suicidal or homicidal intent. Risk Factors Assessment Male: No : Yes Do You Have Access To A Gun?: No (Patient reports that her removed the guns from her house following her 2017 psychiatric admission. He also reportedly removed all of her pill bottles from the house more recently.) Health Problems: Yes Mental Health Diagnoses: Yes Substance Use Disorders: No Previous Attempt: Yes Previous Attempt; Highly Lethal: Yes Previous Attempt; Planned: Yes Previous Attempt; Didn't Tell Anyone: No Previous Psychiatric Hospitalization: Yes Hopelessness: No Smoker: No Protective Factors Assessment Muslim Beliefs: Yes (Patient describes herself as "Worship" and says that she reads the Bible, although she tends not to go to confucianist. She mentioned that the last time she went to confucianist she came home and began to imagine that "Per and the devil" were fighting against each other in her home. Patient does say that her sense of right and wrong comes from the 10 commandments) : Yes Responsible for Young Children: No Employed: No Stable Relationships: Yes Supportive Family: Yes (Patient acknowledges that her is actually supportive, has called her several times since she arrived here, and has attempted to help her by removing dangerous objects from their home, etc.) Good Rapport with Provider: Yes Absence of Any Risk Factors Above: No Interval History Identifying Information SILVERIO MEAD is a 54-year-old F who currently lives with her in [facility]. She has a history of schizoaffective disorder, and and was admitted on 03/01/20 16:26 on a 201 voluntary agreement because of both suicidal and homicidal ideations. Chief Complaint " Pretty good". Review of Systems Sleep Information Total Hours of Sleep: 6.5 Meal Information Percent Meal Consumed - Breakfast: 100 Percent Meal Consumed - Lunch: 100 Percent Meal Consumed - Dinner: 90 Subjective Subjective Patient was seen & assessed and interval progress reviewed with nursing and social work. Staff report she is attending and participating in groups, reporting improved mood, and has a family meeting scheduled with her for tomorrow morning. On my assessment, she states that treatment has been helpful and she is "seeing things differently, not so negatively." She states she was focused on all of the bad things that her had done, but is now realizing that there are good aspects to him as well, and that he has made positive changes over the past 3 years. She is trying to "see him as more of a whole person," and is hopeful that they will be able to discuss some of their communication problems in their family meeting tomorrow. She would like them to try couples counseling, but is not sure if he will be willing. She denies thoughts of harming herself or anyone else, and is working on her safety plan. Auditory hallucinations are decreased from admission, but ongoing. Physical Exam Psychiatric Orientation: alert and cooperative Apperance: appropriately dressed, appropriately groomed and appeared stated age Eye Contact: good eye contact Motor Behavior: steady gait and station and no abnormal motor movements Speech: normal rate/rhythm/volume of speech Affect: euthymic affect and mood congruent with affect "Pretty good." Thought Process: goal directed thought process Thought Content: reality based without delusions Suicidal Thoughts: denies suicidal thoughts Homicidal Thoughts: denies homicidal thoughts Hallucinations: + auditory hallucinations Cognition: recent memory grossly intact Estimated Intelligence: consistent with education level Insight: + fair insight Judgement: + fair judgement Vital Signs (Past 24 Hours) Last Vital Signs Temp 36.4 C L 03/04/20 06:32 Pulse 76 03/04/20 06:32 Resp 18 03/04/20 06:32 BP 134/71 03/04/20 06:32 Pulse Ox 95 03/01/20 19:40 Results & Data ([facility]) Current Inpatient Medications Current Inpatient Medications: Current Inpatient Medications Acetaminophen (Tylenol) 650 mg PO Q4H PRN PRN Reason: Headache or Minor Fever Stop: 03/31/20 16:24 Al Hydrox/Mg Hydrox/Simethicone (Maalox) 30 ml PO Q4H PRN PRN Reason: GI Upset Stop: 03/31/20 16:24 Benztropine Mesylate (Cogentin) 1 mg PO BID PRN PRN Reason: EPS Stop: 04/01/20 16:24 Bismuth Subsalicylate (Kaopectate) 15 ml PO PRN PRN PRN Reason: Loose Stool Stop: 03/31/20 16:24 Bupropion HCl (Wellbutrin-Sr) 150 mg PO BID@0900,1300 LOTTIE Stop: 04/02/20 08:59 Last Admin: 03/03/20 13:32 Dose: 150 mg Documented by: Clonazepam (Klonopin) 0.5 mg PO BID PRN PRN Reason: Anxiety Stop: 03/31/20 20:45 Last Admin: 03/02/20 21:26 Dose: 0.5 mg Documented by: Escitalopram Oxalate (Lexapro Tab) 20 mg PO DAILY LOTTIE Stop: 04/02/20 08:59 Last Admin: 03/03/20 09:05 Dose: 20 mg Documented by: Hydroxyzine HCl (Vistaril) 50 mg PO HSZ PRN PRN Reason: Insomnia Stop: 03/31/20 16:24 Last Admin: 03/04/20 00:13 Dose: 50 mg Documented by: Hydroxyzine HCl (Vistaril) 25 mg PO Q4H PRN PRN Reason: Anxiety Stop: 03/31/20 16:24 Last Admin: 03/03/20 09:19 Dose: 25 mg Documented by: Hydroxyzine HCl (Vistaril) 25 mg PO TID PRN PRN Reason: Anxiety Stop: 04/01/20 15:59 Lamotrigine (Lamictal) 200 mg PO BID LOTTIE Stop: 03/31/20 20:59 Last Admin: 03/03/20 21:37 Dose: 200 mg Documented by: Lamotrigine (Lamictal) 100 mg PO DAILY@1200 LOTTIE Stop: 04/01/20 11:59 Last Admin: 03/03/20 12:43 Dose: 100 mg Documented by: Magnesium Hydroxide (Milk Of Magnesia) 30 ml PO DAILY PRN PRN Reason: Constipation Stop: 03/31/20 16:24 Estroplus~Non- Formulary Patient's Own Med 1 ea PO DAILY LOTTIE Stop: 04/01/20 08:59 Last Admin: 03/03/20 09:06 Dose: 1 tab Documented by: Perphenazine (Trilafon) 2 mg PO BID LOTTIE Stop: 04/01/20 20:59 Last Admin: 03/03/20 21:37 Dose: 2 mg Documented by: Sodium Chloride ([place] Nasal) 1 - 2 sprays NA PRN PRN PRN Reason: Nasal Dryness/Congestion Stop: 03/31/20 16:24 Topiramate (Qudexy Xr) 1 ea PO HS LOTTIE Stop: 03/31/20 21:59 Last Admin: 03/03/20 21:38 Dose: 1 ea Documented by: Topiramate (Qudexy Xr) 2 ea PO HS LOTTIE Stop: 03/31/20 21:59 Last Admin: 03/03/20 21:38 Dose: 2 ea Documented by: Mental Health & Subst Abuse Tx Psychiatrist Name of Psychiatrist: [facility] Date of Appointment with Psychiatrist: 03/20/20 Psychiatric Appointment Comment: [address] [place], [place] [id number] Therapist Name of Therapist: Zeenat Bowman Therapist's Date of Therapist Appointment: 03/13/20 Time of Therapist Appointment: 3:00pm Therapy Appointment Comment: [address] [place] [address] Electrical Lineworker Name of Electrical Lineworker: None Post Discharge Appointments Primary Care Physician Name Of Family Doctor: . Primary Care Phone Number: . Date of Appointment with PCP: 03/20/20 Provider Appointment Comment: . Contact Information Discharge Discharge Address: [facility], [place] [address]
[2020-03-04] MEDS: lamoTRIgine 100 MG TAB PO SCH ×3 (08:10→21:09)
[2020-03-04] MEDS: PERPHENAZINE 2 MG TABLET PO SCH ×2 (08:10→21:09)
[2020-03-04] MEDS: ESCITALOPRAM OXALATE 20 MG TAB PO SCH (08:10)
[2020-03-04] MEDS: [UNRECOGNIZED DRUG - OTHER] PO SCH (08:11)
[2020-03-04] MEDS: BuPROPion SR 150 MG TABCR PO SCH ×2 (08:11→13:41)
[2020-03-04] MEDS: TOPIRAMATE XR PO SCH ×2 (21:11)
[2020-03-05] MEDS: clonazePAM 0.5 MG TAB PO PRN (00:16)
[2020-03-05] MEDS: ESCITALOPRAM OXALATE 20 MG TAB PO SCH (08:26)
[2020-03-05] MEDS: BuPROPion SR 150 MG TABCR PO SCH ×2 (08:26→13:20)
[2020-03-05] MEDS: lamoTRIgine 100 MG TAB PO SCH ×2 (08:26→13:21)
[2020-03-05] MEDS: PERPHENAZINE 2 MG TABLET PO SCH (08:26)
[2020-03-05] MEDS: [UNRECOGNIZED DRUG - OTHER] PO SCH (08:27)
[2020-03-05 11:05] LABS: MDA negative; MDEA negative; MDMA (Ecstasy) Urine, Confirm negative
--- NOTE | 2020-03-05 12:32 | Discharge Summary ---
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 providers, please call the CAN HELP LINE AT or go to the closest Emergency Room. 5. Avoid alcohol and un-prescribed drugs. 6. You have been provided with the Mental Health Advance Directives Pamphlet for your review. AFTERCARE APPOINTMENTS: * Please call your insurance company prior to your scheduled appointment to confirm your aftercare providers are covered. Take your insurance information to your appointments. WHO TO CALL AND WHEN: Medical Emergencies: For questions or emergencies related to your hospital stay, please contact the Inpatient Behavioral Health Unit at [phone]. A department clinician is on-call 15/06 for the Behavioral Health Unit for emergencies At any time you feel your situation is an emergency, you may also call [email or web address]. Your Doctors Instructions noted above were prepared by provider Janae Trejo MD. Pending Studies at Discharge: No Stand-Alone Forms: My [employer], Smoking Cessation, Suicide Prevention Resources Medications and DC Order Prescriptions: New perphenazine 2 mg Tablet 2 mg PO BID Qty: 60 RF: 0 Continued lamotrigine 200 mg tablet 200 mg PO BID RF: 0 bupropion HCl 150 mg tablet sustained-release 12 hr 150 mg PO BID RF: 0 hydroxyzine HCl 25 mg tablet 25 mg PO TID PRN (Reason: Anxiety) RF: 0 escitalopram oxalate 20 mg tablet 20 mg PO DAILY RF: 0 clonazepam 0.5 mg tablet 0.5 mg PO BID PRN (Reason: Anxiety) RF: 0 lamotrigine 100 mg tablet 100 mg PO DAILY@12 RF: 0 Trokendi XR 200 mg capsule,extended release 24hr 400 mg PO .COMPLEX 90 Days Qty: 60 RF: 2 Trokendi XR 50 mg capsule,extended release 24hr 50 mg PO .COMPLEX Qty: 30 RF: 2 Estroplus Max Strength 90-60 mg Tablet 1 tab PO WM RF: 0 Discharge Orders: Discharge Order (Routine); Ordered 03/05/20 Ordered By: Janae Trejo Admission Data Admit Date/Time: 03/01/20 16:26 Attending Provider: Prashanth Louie Admit Provider: Janae Trejo Primary Care Provider: Melquiades Bond Other Interventions: PSY Interdisciplinary Discharge Planning Last Done: 03/05/20 11:07 Coding Level of Care Code 19094 D/C day mgmt > 30 min Diagnoses Schizoaffective disorder F25.9 Auditory hallucinations R44.0 Suicidal ideation R45.851 Homicidal ideation R45.850 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
== END 2020-03-05 19:45 | disposition home or self-care (01) | DRG 885 ==
LOC: ED 13:18 → 3S 16:26